=== PATIENT | female | born 1950 | race Caucasian/White ===

== ENCOUNTER → 2021-05-13 | Outpatient (CLI) | payer MEDICARE ==
--- NOTE | 2021-05-13 14:54 | NM ---
EXAMINATION TYPE: NM renal flow and function DATE OF EXAM: 05/13/2021 COMPARISON: NONE HISTORY: Hydronephrosis Following administration of 10.6 mCi Tc99m MAG3. Immediate images post injection. FINDINGS: Time activity curves were generated following administration and scanning posteriorly of th e kidneys. Lasix is administered on protocol. Left: 53.3 %. Right: 46.7 %. Max renal flow left: 7 minutes. Max renal flow right: 46.7 minutes. Satisfactory accumulation of radiotracer within both renal collecting systems. T 1/2 left: 11.7 minutes. T 1/2 right: 13.9 minutes. FINDINGS: There is some mild asymmetry noted on count acquisition between the kidneys as described. Excretion i s noted bilaterally, somewhat delayed excretion on the right as compared to left. Renal pelvis may be somewhat more prominent on the right than on the left. IMPRESSION: Mild asymmetric excretion, somewhat delayed on the right as compared to the left. 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
== END | disposition home or self-care (01) ==
LOC: RADNMMAIN 12:38
PROVIDERS: ATTEND Urology
DX: R93.421 Abnormal radiologic findings on diagnostic imaging of right kidney (principal); R93.422 Abnormal radiologic findings on diagnostic imaging of left kidney
CPT/HCPCS: 78707; A9562

== ENCOUNTER 2023-10-28 14:25 | Inpatient (IN) | payer MEDICARE ==
[2023-10-28] MEDS: HEPARIN SOD,PORK IN 0.45% NACL 25,000 UNIT in 0.45% NACL 1 250ML.BAG IV SCH (14:51)
--- NOTE | 2023-10-28 14:59 | ED ---
General Adult HPI - General Chief complaint: Fall Stated complaint: AFib Time Seen by Provider: 10/28/23 14:27 Source: patient, EMS Mode of arrival: EMS Limitations: no limitations - History of Present Illness Initial comments: Dictation was produced using [employer] dictation software. please excuse any grammatical, word or spelling errors. Chief Complaint: 73-year-old female presents to the ER for A-fib RVR History of Present Illness: Patient 73-year-old female transferred from outside emergency department. Spoke with Dr. Babin states that patient is being transferred for higher level of care. She presented initially for chief symptom of generalized weakness and presyncope. She was found to be in A-fib with rapid ventricular rate. She started on heparin and Cardizem. Patient does not have any history of cardiac disease. She states that she was recently diagnosed with Crohn's disease started on prednisone. Denies any chest pain or shortness of breath. The ROS documented in this emergency department record has been reviewed and confirmed by me. Those systems with pertinent positive or negative responses have been documented in the HPI. All other systems are other negative and/or noncontributory. - Related Data Allergies Allergy/AdvReac Type Severity Reaction Status Date / Time No Known Allergies Allergy Verified 10/28/23 14:38 Review of Systems ROS Statement: Those systems with pertinent positive or pertinent negative responses have been documented in the HPI. ROS Other: All systems not noted in ROS Statement are negative. Past Medical History Past Medical History: Asthma, Hyperlipidemia, Hypertension Additional Past Medical History / Comment(s): Colitis, Hypothyroidism, Telangiectasia History of Any Multi-Drug Resistant Organisms: None Reported Past Surgical History: Bladder Surgery Past Psychological History: No Psychological Hx Reported Smoking Status: Never smoker Past Alcohol Use History: Occasional Past Drug Use History: None Reported General Exam - General Exam Comments Initial Comments: PHYSICAL EXAM: General Impression: Alert and oriented x3, not in acute distress HEENT: Normocephalic atraumatic, extra-ocular movements intact, pupils equal and reactive to light bilaterally, mucous membranes moist. Cardiovascular: Irregular Chest: Able to complete full sentences, no retractions, no tachypnea Abdomen: abdomen soft, non-tender, non-distended, no organomegaly Musculoskeletal: Pulses present and equal in all extremities, no peripheral edema Motor: no focal deficits noted Neurological: CN II-XII grossly intact, no focal motor or sensory deficits noted Skin: Intact with no visualized rashes Psych: Normal affect and mood Limitations: no limitations Course Vital Signs 10/28/23 14:32 Temperature 98.8 F Pulse Rate 133 H Respiratory 18 Rate Blood Pressure 99/69 O2 Sat by Pulse 93 L Oximetry EKG Findings - EKG Comments: EKG Findings:: My EKG interpretation: Ventricular rate 120, A-fib, QRS 80, QTc 344. No QTC prolongation, no ST or T-wave changes noted. Overall, this EKG is unremarkable Medical Decision Making - Medical Decision Making Was pt. sent in by a medical professional or institution (, DAVID, [employer] P[employer] INST[employer]ER, urgent care, hospital, or senior living...) When possible be specific @ -Sent from outside emergency department Did you speak to anyone other than the patient for history (EMS, parent, family, police, friend...)? What history was obtained from this source @ -See above Did you review nursing and triage notes (agree or disagree)? Why? @ -I reviewed and agree with nursing and triage notes Were old charts reviewed (outside hosp., previous admission, EMS record, old EKG, old radiological studies, urgent care reports/EKG's, senior living records)? Report findings @ -Documentation from outside hospital reviewed Differential Diagnosis (chest pain, altered mental status, abdominal pain women, abdominal pain men, vaginal bleeding, musculoskeletal, weakness, fever, dyspnea, syncope, headache, dizziness, GI bleed, back pain, seizure, CVA, palpatations, mental health)? @ -Differential Weakness: Hypoglycemia, shock, sepsis, hyponatremia, anemia, infection, RI, ETOH, adverse medicine reaction, overdose, stroke, this is not meant to be an all-inclusive list. EKG interpreted by me (3pts min.). @ -See above X-rays interpreted by me (1pt min.). @ -None done CT interpreted by me (1pt min.). @ -None done U/S interpreted by me (1pt. min.). @ -None done What testing was considered but not performed or refused? (CT, X-rays, U/S, labs)? Why? @ -None What meds were considered but not given or refused? Why? @ -None Did you discuss the management of the patient with other professionals (professionals i.e. , DAVID, [employer]ED[employer] PIPE INSTALLER, lab, RT, psych nurse, social service worker, director of rotc, teacher, engineering officer, rn case manager)? Give summary @ -Discussed with hospitalist for admission Was smoking cessation discussed for >3mins.? @ -No Was critical care preformed (if so, how long)? @ -No Were there social determinants of health that impacted care today? How? (Homelessness, low income, unemployed, alcoholism, drug addiction, transportation, low edu. Level, literacy, decrease access to med. care, half-way, rehab)? @ -No Was there de-escalation of care discussed even if they declined (Discuss DNR or withdrawal of care, Hospice)? DNR status @ -No What co-morbidities impacted this encounter? (DM, HTN, Smoking, COPD, CAD, Cancer, CVA, ARF, Chemo, Hep., AIDS, mental health diagnosis, sleep apnea, morbid obesity)? @ -None Was patient admitted / discharged? Hospital course, mention meds given and route, prescriptions, significant lab abnormalities, going to OR and other pertinent info. @ -73-year-old female transferred from outside emergency department for higher level of care. Vital signs shows tachycardia. She is in some degree of mild A- fib RVR. Patient r continued on heparin and Cardizem. Patient be admitted with cardiology consultation. Undiagnosed new problem with uncertain prognosis? @ -No Drug Therapy requiring intensive monitoring for toxicity (Heparin, Nitro, Insulin, Cardizem)? @ -No Were any procedures done? @ -No Diagnosis/symptom? Acute, or Chronic, or Acute on Chronic? Uncomplicated (without systemic symptoms) or Complicated (systemic symptoms)? @ -New onset A-fib RVR Side effects of treatment? @ -No Exacerbation, Progression, or Severe Exacerbation? @ -No Poses a threat to life or bodily function? How? (Chest pain, USA, RI, pneumonia, PE, COPD, DKA, ARF, appy, cholecystitis, CVA, Diverticulitis, Homicidal, Suicid al, threat to staff... and all critical care pts) @ -yes Disposition Clinical Impression: Atrial fibrillation with RVR Disposition: ADMITTED IP TO THIS HOSP Condition: Fair Referrals: Lillian Olvera DO [Primary Care Provider] - 1-2 days Decision Time: 15:07
[2023-10-28] MEDS ORDERED: NALOXONE 0.4 MG/ML 1 ML VIAL IV PRN (15:01)
[2023-10-28] MEDS: SODIUM CHLORIDE 0.9% 1,000 ML IV SCH (15:21)
[2023-10-28] MEDS: DILTIAZEM 125 MG in SODIUM CHLORIDE 0.9% 100 ML IV SCH (15:21)
[2023-10-28] MEDS: SODIUM CHLORIDE 0.9% 500 ML 250 ML IV ONE (17:48)
[2023-10-28] MEDS ORDERED: ALBUTEROL NEBULIZED 1.25 MG/3 ML INHALATION PRN (18:54)
[2023-10-28] MEDS ORDERED: ALBUTEROL HFA INHALER INHALATION PRN (18:54)
[2023-10-28 20:09] LABS: HCT 29.5 % (34.0-46.0); HGB 9.8 gm/dL (11.4-16.0); Hypochromasia Slight; MCH 29.7 pg (25.0-35.0); MCHC 33.3 g/dL (31.0-37.0); MCV 89.3 fL (80.0-100.0); Mean Platelet Volume 8.6; Platelet Count 394 k/uL (150-450); RDW 15.2 % (11.5-15.5); WBC 12.7 k/uL (3.8-10.6)
[2023-10-28] MEDS: BALSALAZIDE DISODIUM 750 MG CAPSULE PO SCH (20:53)
[2023-10-28 21:26] LABS: African American GFR (CKD) >90 (>60 ml/min/1.73 sqM); Anion Gap 3 mmol/L; Blood Urea Nitrogen 17 mg/dL (7-17); Calcium 7.7 mg/dL (8.4-10.2); Carbon Dioxide 30 mmol/L (22-30); Chloride 95 mmol/L (98-107); Glucose 119 mg/dL (74-99); Non-African American GFR(CKD) 81 (>60 ml/min/1.73 sqM); Potassium 4.1 mmol/L (3.5-5.1); Sodium 128 mmol/L (137-145)
[2023-10-28] MEDS: HEPARIN SODIUM 1,000 UN/ML (10ML VL) IV PRN (22:29)
[2023-10-29] MEDS: FLUTICASONE 110 MCG INHALER INHALATION SCH (00:42)
[2023-10-29 03:19] LABS: HGB 9.6 gm/dL (11.4-16.0); MCH 28.6 pg (25.0-35.0); MCHC 32.1 g/dL (31.0-37.0); MCV 89.1 fL (80.0-100.0); Mean Platelet Volume 7.3; Platelet Count 475 k/uL (150-450); RBC 3.37 m/uL (3.80-5.40); WBC 11.3 k/uL (3.8-10.6)
[2023-10-29 04:12] LABS: African American GFR (CKD) >90 (>60 ml/min/1.73 sqM); Blood Urea Nitrogen 15 mg/dL (7-17); Calcium 7.6 mg/dL (8.4-10.2); Carbon Dioxide 29 mmol/L (22-30); Chloride 96 mmol/L (98-107); Glucose 105 mg/dL (74-99); Non-African American GFR(CKD) 84 (>60 ml/min/1.73 sqM)
[2023-10-29 04:23] LABS: Anion Gap 2 mmol/L; Potassium 3.5 mmol/L (3.5-5.1); Sodium 127 mmol/L (137-145)
[2023-10-29] MEDS: LEVOTHYROXINE 25 MCG TAB PO SCH (09:46)
[2023-10-29] MEDS: ASCORBIC ACID 500 MG TAB PO SCH (09:46)
[2023-10-29] MEDS: MULTIVITAMINS, THERA 1 EACH TAB PO SCH (09:46)
[2023-10-29] MEDS: DEXTROSE 5% IN WATER 100 ML with AMIODARONE 150 MG IV ONE (09:47)
[2023-10-29] MEDS: predniSONE 10 MG TAB PO SCH (09:47)
[2023-10-29] MEDS: AMIODARONE 360 MG in DEXTROSE 5% IN WATER 200 ML IV ONE (09:48)
[2023-10-29] MEDS: CHOLECALCIFEROL 25 MCG (1000 IU) TABLET PO SCH (09:52)
--- NOTE | 2023-10-29 10:10 | P.CRDCN ---
History of Present Illness History of present illness: HISTORY OF PRESENT ILLNESS: This is a 73 year old female with a past medical history significant for hypertension, hypothyroidism, and Crohn's disease. Patient follows with a local area network administrator. We have been asked to see the patient in consultation for new onset atrial fibrillation. Patient examined at the bedside. Patient initially presented to the hospital after sustaining a fall. She states that she was diagnosed recently with left foot cellulitis. The patient was also found to be in A-fib with RVR. She denies a previous history of atrial fibrillation. She denied having any palpitations. She denies any chest pain or pressure. She denies shortness of breath. The patient was started on IV heparin. She did develop bright red blood per rectum this morning and her IV heparin has been discontinued. She does report that she was recently diagnosed with Crohn's disease and was started on steroids on an outpatient basis. This morning she remains in atrial fibrillation with heart rate between [id number]. DIAGNOSTICS: - EKG reveals atrial fibrillation with RVR. Heart rate 120. No signs of acute ischemia - Laboratory data: WBC 11.3. Hemoglobin 9.6. Platelet count 475. Sodium 128. Potassium 3.5. BUN 15. Creatinine 0.71. Magnesium 2.0. Troponin negative x 1. TSH 1.180 - Current home cardiac medications include Lasix 20 mg daily and benazepril 40 mg daily REVIEW OF SYSTEMS: At the time of my exam: CONSTITUTIONAL: Denies fever or chills. HEENT: Denies blurred vision, vision changes, or eye pain. Denies hemoptysis CARDIOVASCULAR: Denies chest pain. Denies orthopnea. Denies PND. Denies palpitations RESPIRATORY: Denies shortness of breath. GASTROINTESTINAL: Denies abdominal pain. Denies nausea or vomiting. HEMATOLOGIC: Denies bleeding disorders. GENITOURINARY: Denies any blood in urine. SKIN: Denies pruitis. Denies rash. PHYSICAL EXAM: VITAL SIGNS: Reviewed. GENERAL: Well-developed in no acute distress. HEENT: Head is normocephalic. Pupils are equal, round. Sclerae anicteric. Mucous membranes of the mouth are moist. Neck supple. No JVD or thyromegaly LUNGS: Respirations even and unlabored. Lungs essentially clear to auscultation bilaterally. HEART: Tachycardic. Irregular rate and rhythm. S1 and S2 heard. ABDOMEN: Soft. Nondistended. Nontender. EXTREMITIES: Normal range of motion. No clubbing or cyanosis. Peripheral pulses intact. 2+ bilateral lower extremity edema, worse at the feet/ankles NEUROLOGIC: Awake and alert. Oriented x 3. ASSESSMENT: Recent diagnosis of left foot cellulitis, appears to be resolved S/P mechanical fall New onset atrial fibrillation with RVR Bright red blood per rectum, after initiation of IV Heparin Recent diagnosis of Crohn's disease Hyponatremia Hypertension Hypothyroidism Family history of CAD PLAN: Obtain 2D echo to assess cardiac structure and function Discontinue IV heparin. Will not initiate oral anticoagulation at this time secondary to bright red blood per rectum. Continue to monitor hemoglobin. Discontinue IV Cardizem Begin metoprolol 25 mg twice a day Begin IV amiodarone bolus and infusion TSH checked and within normal limits. Continue telemetry monitoring Hold off on initiating diuretic therapy for lower extremity edema secondary to hyponatremia Further recommendations pending patient course Nurse practitioner note has been reviewed by physician. Signing provider agrees with the documented findings, assessment, and plan of care documented by [employer] E[employer]OMIST as a scribe. Past Medical History Past Medical History: Asthma, Hyperlipidemia, Hypertension Additional Past Medical History / Comment(s): Colitis, Hypothyroidism History of Any Multi-Drug Resistant Organisms: None Reported Past Surgical History: Bladder Surgery Additional Past Surgical History / Comment(s): Colonoscopy Past Anesthesia/Blood Transfusion Reactions: No Reported Reaction Smoking Status: Former smoker Medications and Allergies Home Medications Medication Instructions Recorded Confirmed Type Albuterol Sulfate [Accuneb] 3 ml INHALATION RT-Q4H PRN 10/28/23 10/28/23 History Albuterol Sulfate [Ventolin HFA] 2 puff INHALATION RT-Q4H PRN 10/28/23 10/28/23 History Ascorbic Acid [Vitamin C] 1,000 mg PO DAILY 10/28/23 10/28/23 History Balsalazide Disodium 2,250 mg PO TID 10/28/23 10/28/23 History Benazepril HCl 40 mg PO DAILY 10/28/23 10/28/23 History Calcium Citrate/Vitamin D3 1 tab PO DAILY 10/28/23 10/28/23 History [Citracal + D Maximum Caplet] Cholecalciferol [Vitamin D3 (25 25 mcg PO DAILY 10/28/23 10/28/23 History Mcg = 1000 Iu)] EPINEPHrine (Auto Inject) [Epipen] 0.3 mg IM ONCE PRN 10/28/23 10/28/23 History Fluticasone Propionate 110 Mcg 1 puff INHALATION RT-BID 10/28/23 10/28/23 History [Flovent 110 Mcg Inhaler] Furosemide [Lasix] 20 mg PO DAILY 10/28/23 10/28/23 History Garlic 1,000 mg PO DAILY 10/28/23 10/28/23 History Levothyroxine Sodium 25 mcg PO DAILY 10/28/23 10/28/23 History Multivitamins, Thera [Multivitamin 1 tab PO DAILY 10/28/23 10/28/23 History (formulary)] Red Yeast Rice 1,200 mg PO DAILY 10/28/23 10/28/23 History Ubidecarenone [Coenzyme Q10] 100 mg PO DAILY 10/28/23 10/28/23 History Zinc Gluconate [Zinc] 50 mg PO DAILY 10/28/23 10/28/23 History predniSONE 40 mg PO DAILY 10/28/23 10/28/23 History Allergies Allergy/AdvReac Type Severity Reaction Status Date / Time No Known Allergies Allergy Verified 10/28/23 16:03 Physical Exam Vitals: Vital Signs Temp Pulse Pulse Resp BP BP BP 10/29/23 04:00 99.5 F 121 H 17 99/64 10/29/23 02:00 117 H 17 10/29/23 00:00 98.8 F 113 H 17 130/84 10/28/23 20:00 99.2 F 119 H 17 94/66 10/28/23 18:00 103/69 10/28/23 17:50 93/63 10/28/23 17:40 95/66 10/28/23 17:30 88/60 10/28/23 17:20 81/57 10/28/23 17:15 88/56 10/28/23 16:00 98.4 F 118 H 18 106/43 10/28/23 14:32 98.8 F 133 H 18 99/69 Pulse Ox 10/29/23 04:00 92 L 10/29/23 02:00 10/29/23 00:00 94 L 10/28/23 20:00 93 L 10/28/23 18:00 10/28/23 17:50 10/28/23 17:40 10/28/23 17:30 10/28/23 17:20 10/28/23 17:15 10/28/23 16:00 96 10/28/23 14:32 93 L Intake and Output 10/28/23 10/29/23 10/29/23 22:59 06:59 14:59 Intake Total 252.404 93.333 Output Total 200 Balance 252.404 -106.667 Intake: Intake, IV Titration 72.404 93.333 Amount Diltiazem 125 mg In 93.333 Sodium Chloride 0.9% 100 ml @ 10 MG/HR 10 mls/hr IV .[id number] [facility] Rx#: [id number] Heparin Sod,Pork in 0.45% 72.404 NaCl 25,000 unit In 0.45 % NaCl 1 250ml.bag @ 12 UNITS/KG/HR 9.444 mls/hr IV .Q24H [facility] Rx#: [id number] Oral 180 Output: Urine 200 Other: Voiding Method Bedside Commode Bedside Commode # Voids 1 Weight 78.744 kg Results 10/29/23 03:09 10/29/23 03:09 Cardiac Enzymes 10/28/23 Range/Units 21:35 Troponin I <0.012 (0.000-0.034) ng/mL Coagulation 10/28/23 10/28/23 10/29/23 Range/Units 15:30 21:35 03:09 APTT 37.1 H 25.8 68.3 H (22.0-30.0) sec CBC 10/28/23 10/29/23 Range/Units 19:26 03:09 WBC 12.7 H 11.3 H (3.8-10.6) k/uL RBC 3.30 L 3.37 L (3.80-5.40) m/uL Hgb 9.8 L 9.6 L (11.4-16.0) gm/dL Hct 29.5 L 30.0 L (34.0-46.0) % Plt Count 394 475 H (150-450) k/uL Comprehensive Metabolic Panel 10/28/23 10/29/23 Range/Units 19:26 03:09 Sodium 128 L 127 L (137-145) mmol/L Potassium 4.1 3.5 (3.5-5.1) mmol/L Chloride 95 L 96 L (98-107) mmol/L Carbon Dioxide 30 29 (22-30) mmol/L BUN 17 15 (7-17) mg/dL Creatinine 0.73 0.71 (0.52-1.04) mg/dL Glucose 119 H 105 H (74-99) mg/dL Calcium 7.7 L 7.6 L (8.4-10.2) mg/dL Current Medications Generic Name Dose Route Start Last Admin Trade Name Freq PRN Reason Stop Dose Admin Albuterol Sulfate 0.625 mg 10/28/23 18:54 Albuterol Nebulized 1.25 Mg/3 Ml INHALATION RT-Q4H PRN Shortness Of Breath Albuterol Sulfate 2 puff 10/28/23 18:54 Albuterol Hfa Inhaler INHALATION RT-Q4H PRN Shortness Of Breath Ascorbic Acid 1,000 mg 10/29/23 09:00 Ascorbic Acid 500 Mg Tab PO DAILY [facility] Balsalazide 2,250 mg 10/28/23 22:00 10/28/23 20:53 Balsalazide Disodium 750 Mg Capsule PO 2,250 mg TID [facility] Administration Cholecalciferol 25 mcg 10/29/23 09:00 Cholecalciferol 25 Mcg (1000 Iu) Tablet PO DAILY [facility] Fluticasone Propionate 1 puff 10/28/23 20:00 10/29/23 00:42 Fluticasone 110 Mcg Inhaler INHALATION 1 puff RT-BID [facility] Administration Heparin Sodium (Porcine) 0 unit 10/28/23 14:41 10/28/23 22:29 Heparin Sodium 1,000 Un/Ml (10ml Vl) IV 3,900 unit PER PROTOCOL PRN Administration Low PTT Protocol Diltiazem HCl 125 mg/ Sodium 125 mls @ 10 mls/hr 10/28/23 14:45 10/29/23 00:41 Chloride IV 10 mg/hr .[id number] [facility] 10 mls/hr Administration 10 MG/HR Heparin Sodium/Sodium Chloride 250 mls @ 9.444 mls/hr 10/28/23 14:45 10/28/23 22:31 25,000 unit/ Sodium Chloride IV 15 units/kg/hr .Q24H [facility] 11.805 mls/hr Titration Protocol 12 UNITS/KG/HR Sodium Chloride 1,000 mls @ 20 mls/hr 10/28/23 15:15 03/17/24 15:21 Saline 0.9% IV 20 mls/hr .Q24H [facility] Administration Levothyroxine Sodium 25 mcg 10/29/23 09:00 Levothyroxine 25 Mcg Tab PO DAILY [facility] Multivitamins 1 each 10/29/23 09:00 Multivitamins, Thera 1 Each Tab PO DAILY [facility] Naloxone HCl 0.2 mg 10/28/23 15:01 Naloxone 0.4 Mg/Ml 1 Ml Vial IV Q2M PRN Opioid Reversal Non-Formulary Medication 1 tab 10/29/23 09:00 Calcium Citrate/Vitamin D3 [Citracal + D Maximum Caplet] PO DAILY [facility] Non-Formulary Medication 1,000 mg 10/29/23 09:00 Garlic [Garlic] PO DAILY [facility] Non-Formulary Medication 50 mg 10/29/23 09:00 Zinc Gluconate PO DAILY [facility] Prednisone 40 mg 10/29/23 09:00 Prednisone 10 Mg Tab PO DAILY [facility] Intake and Output 10/28/23 10/29/23 10/29/23 22:59 06:59 14:59 Intake Total 252.404 93.333 Output Total 200 Balance 252.404 -106.667 Intake: Intake, IV Titration 72.404 93.333 Amount Diltiazem 125 mg In 93.333 Sodium Chloride 0.9% 100 ml @ 10 MG/HR 10 mls/hr IV .[id number] [facility] Rx#: [id number] Heparin Sod,Pork in 0.45% 72.404 NaCl 25,000 unit In 0.45 % NaCl 1 250ml.bag @ 12 UNITS/KG/HR 9.444 mls/hr IV .Q24H [facility] Rx#: [id number] Oral 180 Output: Urine 200 Other: Voiding Method Bedside Commode Bedside Commode # Voids 1 Weight 78.744 kg 10/29/23 03:09 10/29/23 03:09
[2023-10-29] MEDS: NON FORMULARY DRUG (Garlic [Garlic] 1,000 MG Capsule) PO SCH (10:25)
[2023-10-29] MEDS: NON FORMULARY DRUG (Calcium Citrate/Vitamin D3 [Citracal + D Maximum Caplet] 1 EACH Tablet PO SCH (10:25)
[2023-10-29] MEDS: NON FORMULARY DRUG (Zinc Gluconate 50 MG Tab) PO SCH (10:26)
--- NOTE | 2023-10-29 10:29 | CA ---
Transthoracic Echo Report Name: Debra Alejandre Age: 73 Gender: F : 1950 Exam Date: 10/29/2023 07:36 Exam Location: [facility] Ht (in): 63 Wt (lb): 173 Ordering Physician: Kumar Casas MD ([id number]) Attending/Referring Phys: Fish Trapper Dorene Prado RDCS Procedure CPT: Indications: afib rvr Cardiac Hx: HTN Technical Quality: Good Contrast 1: Total Dose (mL): Contrast 2: Total Dose (mL): MEASUREMENTS (Male / Female) Normal Values 2D ECHO LV Diastolic Diameter PLAX 3.9 cm 4.2 - 5.9 / 3.9 - 5.3 cm LV Systolic Diameter PLAX 2.3 cm IVS Diastolic Thickness 1.1 cm 0.6 - 1.0 / 0.6 - 0.9 cm LVPW Diastolic Thickness 1.0 cm 0.6 - 1.0 / 0.6 - 0.9 cm LV Relative Wall Thickness 0.5 RV Internal Dim ED PLAX 2.9 cm LA Systolic Diameter LX 3.1 cm 3.0 - 4.0 / 2.7 - 3.8 cm LV Diastolic Volume MOD BP 43.2 cm??? 67 - 155 / 56 - 104 cm??? LV Systolic Volume MOD BP 12.5 cm??? - 58 / 19 - 49 cm??? LV Ejection Fraction MOD BP 71.0 % >= 55 % LV Cardiac Index MOD BP 1893.0 cm???/min???m??? LV Diastolic Volume MOD 4C 60.9 cm??? LV Systolic Volume MOD 4C 13.3 cm??? LV Ejection Fraction MOD 4C 78.1 % LV Cardiac Index MOD 4C 2938.2 cm???/min???m??? LV Diastolic Length 4C 6.9 cm LV Systolic Length 4C 4.8 cm LV Diastolic Volume MOD 2C 28.2 cm??? LV Systolic Volume MOD 2C 11.0 cm??? LV Ejection Fraction MOD 2C 60.8 % LV Cardiac Index MOD 2C 1056.1 cm???/min???m??? LV Diastolic Length 2C 5.8 cm LV Systolic Length 2C 4.4 cm LA Volume 27.8 cm??? 18 - 58 / 22 - 52 cm??? LA Volume Index 14.7 cm???/m??? 16 - 28 cm???/m??? M-MODE Aortic Root Diameter MM 3.3 cm DOPPLER AV Peak Velocity 113.7 cm/s AV Peak Gradient 5.2 mmHg MV Area PHT 2.9 cm??? MV Deceleration Time 224.3 ms TR Peak Velocity 212.1 cm/s TR Peak Gradient 18.0 mmHg Right Ventricular Systolic Press 23.0 mmHg FINDINGS Left Ventricle Left ventricular ejection fraction is estimated at 60-65 %. Left ventricular cavity size normal. Mildly increased septal wall thickness. Mildly increased posterior wall thickness. Right Ventricle Normal right ventricular size. Right ventricular systolic pressure within normal limits. Right Atrium Normal right atrial size. Left Atrium Normal left atrial size. Mitral Valve Structurally normal mitral valve. No mitral stenosis, regurgitation or prolapse. Aortic Valve Trileaflet aortic valve. No aortic valve stenosis or regurgitation. Tricuspid Valve Structurally normal tricuspid valve. Mild tricuspid regurgitation. Pulmonic Valve Structurally normal pulmonic valve. No pulmonic regurgitation. Pericardium No pericardial effusion. Aorta Normal size aortic root and proximal ascending aorta. CONCLUSIONS Left ventricular ejection fraction is estimated at 60-65 %. Mild concentric LVH No obvious regional wall motion abnormality No significant valvular dysfunction No pericardial effusion No prior echo to compare with indicated Previewed by: Dr Toby Woods (Electronically Signed) Final Date: 29 October 2023 10:28
[2023-10-29] MEDS: SODIUM CHLORIDE 0.9% 250 ML IV SCH (12:00)
[2023-10-29] MEDS ORDERED: ACETAMINOPHEN TAB 325 MG TAB PO PRN (12:12)
--- NOTE | 2023-10-29 12:16 | P.HPIM ---
History of Present Illness 73-year-old pleasant female came in after a fall. Patient is found to be in atrial fibrillation with ventricular rate. Patient is presently on amiodarone patient was on Cardizem patient blood pressure is low. Patient had a echocar diogram which showed ejection fraction of 60 to 65%. Patient does take Lasix at home. Patient is also on benazepril. I do not have any BNP available chest x- ray available in this facility. Patient was recently diagnosed with Crohn's disease although not common at this stage. Patient was on IV heparin which was discontinued because of the rectal rectal bleed and Crohn's. Patient was diagnosed with cellulitis although I did not see any cellulitis patient appears to have some osteoarthritis of the left ankle. Patient will not require any antibiotics at this time. REVIEW OF SYSTEMS: CONSTITUTIONAL: No fever, no malaise, no fatigue. HEENT: No recent visual problems or hearing problems. Denied any sore throat. CARDIOVASCULAR: No chest pain, orthopnea, PND, no palpitations, no syncope. PULMONARY: No shortness of breath, no cough, no hemoptysis. GASTROINTESTINAL: No diarrhea, no nausea, no vomiting, no abdominal pain. NEUROLOGICAL: No headaches, no weakness, no numbness. HEMATOLOGICAL: Denies any bleeding or petechiae. GENITOURINARY: Denies any burning micturition, frequency, or urgency. MUSCULOSKELETAL/RHEUMATOLOGICAL: Denies any joint pain, swelling, or any muscle pain. ENDOCRINE: Denies any polyuria or polydipsia. The rest of the 14-point review of systems is negative. PHYSICAL EXAMINATION: GENERAL: The patient is alert and oriented x3, not in any acute distress. Well developed, well nourished. HEENT: Pupils are round and equally reacting to light. EOMI. No scleral icterus. No conjunctival pallor. Normocephalic, atraumatic. No pharyngeal erythema. No thyromegaly. CARDIOVASCULAR: S1 and S2 present. No murmurs, rubs, or gallops. Tachycardic irregularly irregular rhythm PULMONARY: Chest is clear to auscultation, no wheezing or crackles. ABDOMEN: Soft, nontender, nondistended, normoactive bowel sounds. No palpable organomegaly. MUSCULOSKELETAL: No joint swelling or deformity. EXTREMITIES: No cyanosis, clubbing, patient does have significant bilateral pitting pedal edema NEUROLOGICAL: Gross neurological examination did not reveal any focal deficits. SKIN: No rashes. Assessment and plan -New onset atrial fibrillation with rapid ventricular rate continue with amiodarone, anticoagulation is on hold because of the rectal bleed -Possibly of congestive heart failure chronic diastolic function. BNP and a chest x-ray patient blood pressure is low because of which I am not initiating her on diuretics at this time patient probably will need dose once the blood pressure improves -Hypervolemic hyponatremia once the blood pressure improves patient was started on Lasix -Recent's Crohn's diagnosis without any exacerbation at this time patient did have rectal bleed because of which anticoagulation is on hold -Hypertension -Hypothyroidism -Mechanical fall physical therapy occupational therapy evaluation History of asthma without any acute exacerbation DVT prophylaxis: Patient is anticoagulation is on hold because of rectal bleed Past Medical History Past Medical History: Asthma, Hyperlipidemia, Hypertension Additional Past Medical History / Comment(s): Colitis, Hypothyroidism History of Any Multi-Drug Resistant Organisms: None Reported Past Surgical History: Bladder Surgery Additional Past Surgical History / Comment(s): Colonoscopy Past Anesthesia/Blood Transfusion Reactions: No Reported Reaction Smoking Status: Former smoker Medications and Allergies Home Medications Medication Instructions Recorded Confirmed Type Albuterol Sulfate [Accuneb] 3 ml INHALATION RT-Q4H PRN 10/28/23 10/28/23 History Albuterol Sulfate [Ventolin HFA] 2 puff INHALATION RT-Q4H PRN 10/28/23 10/28/23 History Ascorbic Acid [Vitamin C] 1,000 mg PO DAILY 10/28/23 10/28/23 History Balsalazide Disodium 2,250 mg PO TID 10/28/23 10/28/23 History Benazepril HCl 40 mg PO DAILY 10/28/23 10/28/23 History Calcium Citrate/Vitamin D3 1 tab PO DAILY 10/28/23 10/28/23 History [Citracal + D Maximum Caplet] Cholecalciferol [Vitamin D3 (25 25 mcg PO DAILY 10/28/23 10/28/23 History Mcg = 1000 Iu)] EPINEPHrine (Auto Inject) [Epipen] 0.3 mg IM ONCE PRN 10/28/23 10/28/23 History Fluticasone Propionate 110 Mcg 1 puff INHALATION RT-BID 10/28/23 10/28/23 History [Flovent 110 Mcg Inhaler] Furosemide [Lasix] 20 mg PO DAILY 10/28/23 10/28/23 History Garlic 1,000 mg PO DAILY 10/28/23 10/28/23 History Levothyroxine Sodium 25 mcg PO DAILY 10/28/23 10/28/23 History Multivitamins, Thera [Multivitamin 1 tab PO DAILY 10/28/23 10/28/23 History (formulary)] Red Yeast Rice 1,200 mg PO DAILY 10/28/23 10/28/23 History Ubidecarenone [Coenzyme Q10] 100 mg PO DAILY 10/28/23 10/28/23 History Zinc Gluconate [Zinc] 50 mg PO DAILY 10/28/23 10/28/23 History predniSONE 40 mg PO DAILY 10/28/23 10/28/23 History Allergies Allergy/AdvReac Type Severity Reaction Status Date / Time No Known Allergies Allergy Verified 10/28/23 16:03 Physical Exam Vitals: Vital Signs Temp Pulse Pulse Resp BP BP BP 10/29/23 10:00 90/61 10/29/23 08:00 98.2 F 114 H 18 84/59 10/29/23 04:00 99.5 F 121 H 17 99/64 10/29/23 02:00 117 H 17 10/29/23 00:00 98.8 F 113 H 17 130/84 10/28/23 20:00 99.2 F 119 H 17 94/66 10/28/23 18:00 103/69 10/28/23 17:50 93/63 10/28/23 17:40 95/66 10/28/23 17:30 88/60 10/28/23 17:20 81/57 10/28/23 17:15 88/56 10/28/23 16:00 98.4 F 118 H 18 106/43 10/28/23 14:32 98.8 F 133 H 18 99/69 Pulse Ox 10/29/23 10:00 10/29/23 08:00 95 10/29/23 04:00 92 L 10/29/23 02:00 10/29/23 00:00 94 L 10/28/23 20:00 93 L 10/28/23 18:00 10/28/23 17:50 10/28/23 17:40 10/28/23 17:30 10/28/23 17:20 10/28/23 17:15 10/28/23 16:00 96 10/28/23 14:32 93 L Intake and Output 10/28/23 10/29/23 10/29/23 22:59 06:59 14:59 Intake Total 252.404 93.333 180 Output Total 200 Balance 252.404 -106.667 180 Intake: Intake, IV Titration 72.404 93.333 Amount Diltiazem 125 mg In 93.333 Sodium Chloride 0.9% 100 ml @ 10 MG/HR 10 mls/hr IV .[id number] [facility] Rx#: [id number] Heparin Sod,Pork in 0.45% 72.404 NaCl 25,000 unit In 0.45 % NaCl 1 250ml.bag @ 12 UNITS/KG/HR 9.444 mls/hr IV .Q24H [facility] Rx#: [id number] Oral 180 180 Output: Urine 200 Other: Voiding Method Bedside Commode Bedside Commode # Voids 1 1 Weight 78.744 kg Results CBC & Chem 7: 10/29/23 03:09 10/29/23 03:09 Labs: Abnormal Lab Results - Last 24 Hours (Table) 10/28/23 10/28/23 10/28/23 Range/Units 15:30 19:26 19:26 WBC 12.7 H (3.8-10.6) k/uL RBC 3.30 L (3.80-5.40) m/uL Hgb 9.8 L (11.4-16.0) gm/dL Hct 29.5 L (34.0-46.0) % Plt Count (150-450) k/uL APTT 37.1 H (22.0-30.0) sec Sodium 128 L (137-145) mmol/L Chloride 95 L (98-107) mmol/L Glucose 119 H (74-99) mg/dL Calcium 7.7 L (8.4-10.2) mg/dL 10/29/23 10/29/23 10/29/23 Range/Units 03:09 03:09 03:09 WBC 11.3 H (3.8-10.6) k/uL RBC 3.37 L (3.80-5.40) m/uL Hgb 9.6 L (11.4-16.0) gm/dL Hct 30.0 L (34.0-46.0) % Plt Count 475 H (150-450) k/uL APTT 68.3 H (22.0-30.0) sec Sodium 127 L (137-145) mmol/L Chloride 96 L (98-107) mmol/L Glucose 105 H (74-99) mg/dL Calcium 7.6 L (8.4-10.2) mg/dL Thrombosis Risk Factor Assmnt - Choose All That Apply Any of the Below Risk Factors Present?: No Each Risk Factor Represents 3 Points: Age 75 years or older Other congenital or acquired thrombophilia - If yes, enter type in comment: No Thrombosis Risk Factor Assessment Total Risk Factor Score: 3 Thrombosis Risk Factor Assessment Level: Moderate Risk
--- NOTE | 2023-10-29 12:35 | XR ---
EXAMINATION TYPE: XR chest 1V DATE OF EXAM: 10/29/2023 12:30 PM CLINICAL INDICATION:Female, 73 years old with history of CHF; COMPARISON: CT 10/28/2023. TECHNIQUE: XR chest 1V Frontal view of the chest. FINDINGS: Lungs/Pleura: There is no evidence of pleural effusion, focal consolidation, or pneumothorax. Pulmonary vascularity: Unremarkable. Heart/mediastinum: Cardiomediastinal silhouette is unremarkable. Musculoskeletal: No acute osseous pathology. IMPRESSION: No acute cardiopulmonary disease/process.
[2023-10-29 13:28] VITALS: BMI 30.7
[2023-10-29] MEDS: AMIODARONE 450 MG in DEXTROSE 5% IN WATER 250 ML IV SCH (15:46)
[2023-10-29] MEDS: SODIUM CHLORIDE 0.9% 1,000 ML IV SCH (15:48)
[2023-10-29] MEDS: METOPROLOL TARTRATE 25 MG TAB PO SCH (15:49)
[2023-10-30] MEDS ORDERED: predniSONE 20 MG TAB ONE (08:00)
[2023-10-30 09:49] LABS: HCT 31.4 % (34.0-46.0); HGB 9.8 gm/dL (11.4-16.0); Hypochromasia Slight; MCH 28.6 pg (25.0-35.0); MCHC 31.2 g/dL (31.0-37.0); MCV 91.7 fL (80.0-100.0); Mean Platelet Volume 7.3; Platelet Count 506 k/uL (150-450); RBC 3.42 m/uL (3.80-5.40); RDW 15.2 % (11.5-15.5); WBC 12.1 k/uL (3.8-10.6)
[2023-10-30 10:12] LABS: African American GFR (CKD) >90 (>60 ml/min/1.73 sqM); Anion Gap 8 mmol/L; Blood Urea Nitrogen 12 mg/dL (7-17); Calcium 7.8 mg/dL (8.4-10.2); Carbon Dioxide 26 mmol/L (22-30); Chloride 95 mmol/L (98-107); Glucose 130 mg/dL (74-99); Non-African American GFR(CKD) 83 (>60 ml/min/1.73 sqM); Potassium 4.4 mmol/L (3.5-5.1); Sodium 129 mmol/L (137-145)
[2023-10-30] MEDS: AMIODARONE 200 MG TAB PO SCH (12:43)
[2023-10-30] MEDS: FUROSEMIDE 20 MG TAB PO SCH (12:43)
[2023-10-30] MEDS: METOPROLOL TARTRATE 25 MG TAB PO STA (12:43)
--- NOTE | 2023-10-30 12:59 | P.PN ---
Subjective HISTORY OF PRESENT ILLNESS: This is a 73 year old female with a past medical history significant for hypertension, hypothyroidism, and Crohn's disease. Patient follows with a speech and language assistant. We have been asked to see the patient in consultation for new onset atrial fibrillation. Patient examined at the bedside. Patient initially presented to the hospital after sustaining a fall. She states that she was diagnosed recently with left foot cellulitis. The patient was also found to be in A-fib with RVR. She denies a previous history of atrial fibrillation. She denied having any palpitations. She denies any chest pain or pressure. She denies shortness of breath. The patient was started on IV heparin. She did develop bright red blood per rectum this morning and her IV heparin has been discontinued. She does report that she was recently diagnosed with Crohn's disease and was started on steroids on an outpatient basis. This morning she remains in atrial fibrillation with heart rate between [id number]. DIAGNOSTICS: - EKG reveals atrial fibrillation with RVR. Heart rate 120. No signs of acute ischemia - Laboratory data: WBC 11.3. Hemoglobin 9.6. Platelet count 475. Sodium 128. Potassium 3.5. BUN 15. Creatinine 0.71. Magnesium 2.0. Troponin negative x 1. TSH 1.180 - Current home cardiac medications include Lasix 20 mg daily and benazepril 40 mg daily 10/30/2023 Patient examined this morning at the bedside. Patient is sitting up in the chair. Patient currently denies chest pain or pressure. She denies shortness o f breath. Patient remains in atrial fibrillation with heart rate around 110. IV heparin was discontinued yesterday secondary to rectal bleeding. Echocardiogram obtained revealing ejection fraction 60 to 65%, no obvious regional wall motion abnormalities and no significant valvular dysfunction. PHYSICAL EXAM: VITAL SIGNS: Reviewed. GENERAL: Well-developed in no acute distress. HEENT: Head is normocephalic. Pupils are equal, round. Sclerae anicteric. Mucous membranes of the mouth are moist. Neck supple. No JVD or thyromegaly LUNGS: Respirations even and unlabored. Lungs essentially clear to auscultation bilaterally. HEART: Tachycardic. Irregular rate and rhythm. S1 and S2 heard. ABDOMEN: Soft. Nondistended. Nontender. EXTREMITIES: Normal range of motion. No clubbing or cyanosis. Peripheral pulses intact. 2+ bilateral lower extremity edema, worse at the feet/ankles NEUROLOGIC: Awake and alert. Oriented x 3. ASSESSMENT: Recent diagnosis of left foot cellulitis, appears to be resolved S/P mechanical fall New onset atrial fibrillation with RVR Bright red blood per rectum, after initiation of IV Heparin Recent diagnosis of Crohn's disease Hyponatremia Hypertension Hypothyroidism Family history of CAD PLAN: Will not initiate oral anticoagulation at this time secondary to bright red blood per rectum yesterday. Continue to monitor hemoglobin. Increase metoprolol to 50 mg twice a day Discontinue IV amiodarone. Begin oral amiodarone 400 mg twice a day Resume oral Lasix Continue telemetry monitoring Further recommendations pending patient course Nurse practitioner note has been reviewed by physician. Signing provider agrees with the documented findings, assessment, and plan of care documented by TALENT MANAGER as a scribe. Objective - Vital Signs Vital signs: Vital Signs Temp 97.5 F L 10/30/23 08:00 Pulse 119 H 10/30/23 08:00 Resp 18 10/30/23 08:00 BP 104/70 10/30/23 08:00 Pulse Ox 96 10/30/23 08:00 FiO2 Intake & Output 10/29/23 10/30/23 10/30/23 18:59 06:59 18:59 Intake Total 540 227.505 Output Total 780 Balance 540 -552.495 Weight 78.744 kg 80.1 kg Intake: Intake, IV Titration 227.505 Amount Amiodarone 450 mg In 227.505 Dextrose 5% in Water 250 ml @ 0.5 MG/MIN 16.667 mls/hr IV .Q15H [facility] Rx#: [id number] Oral 540 Output: Urine 780 Other: Voiding Method Bedside Commode Bedside Commode # Voids 1 1 # Bowel Movements 1 - Labs CBC & Chem 7: 10/30/23 09:05 10/30/23 09:05
--- NOTE | 2023-10-30 14:17 | P.PN ---
Subjective Progress Note Date: 10/30/23 73-year-old pleasant female came in after a fall. Patient is found to be in atrial fibrillation with ventricular rate. Patient is presently on amiodarone patient was on Cardizem patient blood pressure is low. Patient had a echocardiogram which showed ejection fraction of 60 to 65%. Patient does take Lasix at home. Patient is also on benazepril. I do not have any BNP available chest x-ray available in this facility. Patient was recently diagnosed with Crohn's disease although not common at this stage. Patient was on IV heparin which was discontinued because of the rectal rectal bleed and Crohn's. Patient was diagnosed with cellulitis although I did not see any cellulitis patient appears to have some osteoarthritis of the left ankle. Patient will not require any antibiotics at this time. 10/30/2023 Patient is evaluated in follow-up sitting up in the chair with family at the bedside. She is denying any chest pressure and not having any palpitations. She remains in atrial fibrillation with rapid ventricular rate in the low 100s. She has been continued on IV amiodarone with plans to transition to oral medications today. She is no longer having any episodes of rectal bleeding was never started on IV heparin. Echocardiogram 3 5 or wall abnormalities. She was recently started on oral prednisone outpatient for an acute Crohn's exacerbation. She follows with Dr. Alberto Campos was was to be getting an infusion on and she is wondering which 1 and what of this cardiac side effects for this. She is currently refusing the prednisone she believes this is why she is in atrial fibrillation. GI will be consulted here for further evaluation. Hemoglobin remained stable at 9.8. Her sodium level is 129. Review of Systems Constitutional: Denied any fatigue denied any fever. Cardio vascular: denied any chest pain, palpitations Gastrointestinal: denied any nausea, vomiting, diarrhea Pulmonary: Denied any shortness of breath cough Neurologic denied any new focal deficits All inpatient medications were reviewed and appropriate changes in these medications as dictated in the interval history and assessment and plan. PHYSICAL EXAMINATION: GENERAL: The patient is alert and oriented x3, not in any acute distress. Well developed, well nourished. HEENT: Pupils are round and equally reacting to light. EOMI. No scleral icterus. No conjunctival pallor. Normocephalic, atraumatic. No pharyngeal erythema. No thyromegaly. CARDIOVASCULAR: S1 and S2 present. No murmurs, rubs, or gallops. Tachycardic irregularly irregular rhythm PULMONARY: Chest is clear to auscultation, no wheezing or crackles. ABDOMEN: Soft, nontender, nondistended, normoactive bowel sounds. No palpable organomegaly. MUSCULOSKELETAL: No joint swelling or deformity. EXTREMITIES: No cyanosis, clubbing, patient does have significant bilateral pitting pedal edema NEUROLOGICAL: Gross neurological examination did not reveal any focal deficits. SKIN: No rashes. Assessment and plan -New onset atrial fibrillation with rapid ventricular rate continue with amiodarone, anticoagulation is on hold because of the rectal bleed. Transitioned to oral amiodarone. -Possibly of congestive heart failure chronic diastolic function. BNP and a chest x-ray patient blood pressure is low because of which I am not initiating her on diuretics at this time patient probably will need dose once the blood pressure improves -Hypervolemic hyponatremia Patient is resumed on oral lasix and expecting sodium level to improve. Labs will be repeat in the AM. -Recent's Crohn's diagnosis without any exacerbation at this time patient did have rectal bleed because of which anticoagulation is on hold; refusing the oral prednisone. GI evaluation -Hypertension -Hypothyroidism -Mechanical fall physical therapy occupational therapy evaluation History of asthma without any acute exacerbation DVT prophylaxis: Patient is anticoagulation is on hold because of rectal bleed The impression and plan of care has been dictated by Margie Christianson, Nurse Practitioner as directed. Dr. Wilma MD I have performed a history and physical examination and medical decision making of this patient, discussed the same with the dictator, and agree with the dictators assessment and plan as written, documented as a scribe. Based on total visit time, I have performed more than 50% of this visit. Objective - Vital Signs Vital signs: Vital Signs Temp 97.3 F L 10/30/23 11:36 Pulse 97 10/30/23 11:36 Resp 18 10/30/23 11:36 BP 100/68 10/30/23 11:36 Pulse Ox 97 10/30/23 11:36 FiO2 Intake & Output 10/29/23 10/30/23 10/30/23 18:59 06:59 18:59 Intake Total 540 227.505 980 Output Total 780 Balance 540 -552.495 980 Weight 78.744 kg 80.1 kg Intake: Intake, IV Titration 227.505 150 Amount Amiodarone 450 mg In 227.505 Dextrose 5% in Water 250 ml @ 0.5 MG/MIN 16.667 mls/hr IV .Q15H [facility] Rx#: [id number] Sodium Chloride 0.9% 1, 150 000 ml @ 50 mls/hr IV . Q20H [facility] Rx#:[id number] Oral 540 830 Output: Urine 780 Other: Voiding Method Bedside Commode Bedside Commode # Voids 1 1 1 # Bowel Movements 1 1 - Labs CBC & Chem 7: 10/30/23 09:05 10/30/23 09:05 Labs: Abnormal Lab Results - Last 24 Hours (Table) 10/30/23 10/30/23 Range/Units 09:05 09:05 WBC 12.1 H (3.8-10.6) k/uL RBC 3.42 L (3.80-5.40) m/uL Hgb 9.8 L (11.4-16.0) gm/dL Hct 31.4 L (34.0-46.0) % Plt Count 506 H (150-450) k/uL Sodium 129 L (137-145) mmol/L Chloride 95 L (98-107) mmol/L Glucose 130 H (74-99) mg/dL Calcium 7.8 L (8.4-10.2) mg/dL Assessment and Plan Time with Patient: Less than 30
--- NOTE | 2023-10-30 14:44 | P.CONS ---
History of Present Illness - Reason for Consult Consult date: 10/30/23 Crohn's disease, rectal bleeding Requesting physician: Margie Christianson - Chief Complaint Fall - History of Present Illness This is a pleasant 73-year-old female who presented to the emergency department 2 days ago with complaints of a mechanical fall. Apparently patient has been having increased weakness, increased swelling in her lower extremities as well as a wound to her foot. Patient was noted to have new onset atrial fibrillation as well as hypotension and was admitted to the hospital. She was initially started on a heparin drip as well as a Cardizem drip. She has a recent diagnosis of Crohn's colitis and underwent colonoscopy with Dr. Campos in [place]. She was started on prednisone and balsalazide. Apparently once patient was started on heparin she did have some rectal bleeding yesterday the heparin was subsequently discontinued and no anticoagulation was resumed. She has not had any further rectal bleeding. She states she has about 6 liquid bowel movements daily. Denies any abdominal pain, nausea or vomiting. Patient is being followed by cardiology. She states that she refused her prednisone during this hospitalization because she thought it may have caused her atrial fibrillation. Hemoglobin 9.8 on admission and remained stable at 9.8 today. She does have elevated white blood count, may be secondary to steroids. Patient currently states that she is still feeling weak, legs feel heavy. She states she was up and able to walk around with assistance with Occupational Therapy. She is able to get up and walk to the bathroom. Review of Systems REVIEW OF SYSTEMS: CARDIOPULMONARY: No chest pain or shortness of breath. Lower extremity swelling. Gastrointestinal: No abdominal pain. No nausea or vomiting. No hematemesis, coffee-ground emesis. Rectal bleeding x 1 episode yesterday. Patient otherwise has multiple loose brown bowel movements daily. GENITOURINARY: No dysuria or hematuria. MUSCULOSKELETAL: Reports normal range of motion., Joint pain. SKIN: No rashes. No jaundice. Foot wound. ENDOCRINE: No chills, fevers. No excessive weight gain or loss. No polydipsia or polyuria. PSYCHIATRIC: Unremarkable. NEUROLOGY: No change in mental status. Denies dizziness, headache. ENT: Vision unremarkable. CONSTITUTIONAL: No recent weight loss. No fever, chills, night sweats. Incre ased weakness. Past Medical History Past Medical History: Asthma, Hyperlipidemia, Hypertension Additional Past Medical History / Comment(s): Colitis, Hypothyroidism History of Any Multi-Drug Resistant Organisms: None Reported Past Surgical History: Bladder Surgery Additional Past Surgical History / Comment(s): Colonoscopy Past Anesthesia/Blood Transfusion Reactions: No Reported Reaction Smoking Status: Former smoker Medications and Allergies Home Medications Medication Instructions Recorded Confirmed Type Albuterol Sulfate [Accuneb] 3 ml INHALATION RT-Q4H PRN 10/28/23 10/28/23 History Albuterol Sulfate [Ventolin HFA] 2 puff INHALATION RT-Q4H PRN 10/28/23 10/28/23 History Ascorbic Acid [Vitamin C] 1,000 mg PO DAILY 10/28/23 10/28/23 History Balsalazide Disodium 2,250 mg PO TID 10/28/23 10/28/23 History Benazepril HCl 40 mg PO DAILY 10/28/23 10/28/23 History Calcium Citrate/Vitamin D3 1 tab PO DAILY 10/28/23 10/28/23 History [Citracal + D Maximum Caplet] Cholecalciferol [Vitamin D3 (25 25 mcg PO DAILY 10/28/23 10/28/23 History Mcg = 1000 Iu)] EPINEPHrine (Auto Inject) [Epipen] 0.3 mg IM ONCE PRN 10/28/23 10/28/23 History Fluticasone Propionate 110 Mcg 1 puff INHALATION RT-BID 10/28/23 10/28/23 History [Flovent 110 Mcg Inhaler] Furosemide [Lasix] 20 mg PO DAILY 10/28/23 10/28/23 History Garlic 1,000 mg PO DAILY 10/28/23 10/28/23 History Levothyroxine Sodium 25 mcg PO DAILY 10/28/23 10/28/23 History Multivitamins, Thera [Multivitamin 1 tab PO DAILY 10/28/23 10/28/23 History (formulary)] Red Yeast Rice 1,200 mg PO DAILY 10/28/23 10/28/23 History Ubidecarenone [Coenzyme Q10] 100 mg PO DAILY 10/28/23 10/28/23 History Zinc Gluconate [Zinc] 50 mg PO DAILY 10/28/23 10/28/23 History predniSONE 40 mg PO DAILY 10/28/23 10/28/23 History Allergies Allergy/AdvReac Type Severity Reaction Status Date / Time No Known Allergies Allergy Verified 03/17/24 16:03 Physical Exam Vitals: Vital Signs Temp Pulse Resp BP Pulse Ox 10/30/23 11:36 97.3 F L 97 18 100/68 97 10/30/23 08:40 119 H 10/30/23 08:00 97.5 F L 119 H 18 104/70 96 10/30/23 04:00 97.7 F 119 H 18 98/69 93 L 10/30/23 02:00 114 H 18 10/30/23 00:00 97.9 F 114 H 18 129/88 93 L 10/29/23 20:00 97.5 F L 108 H 18 110/77 96 10/29/23 16:00 97.5 F L 92 18 101/67 97 10/29/23 14:00 100 18 10/29/23 13:30 100 102/69 Intake and Output 10/29/23 10/30/23 10/30/23 22:59 06:59 14:59 Intake Total 180 227.505 980 Output Total 780 Balance 180 -552.495 980 Intake: Intake, IV Titration 227.505 150 Amount Amiodarone 450 mg In 227.505 Dextrose 5% in Water 250 ml @ 0.5 MG/MIN 16.667 mls/hr IV .Q15H [facility] Rx#: [id number] Sodium Chloride 0.9% 1, 150 000 ml @ 50 mls/hr IV . Q20H [facility] Rx#:[id number] Oral 180 830 Output: Urine 780 Other: Voiding Method Bedside Commode Bedside Commode # Voids 1 1 1 # Bowel Movements 1 1 1 Weight 80.1 kg General appearance: The patient is alert, oriented, appears in no acute distress. HET: Head is normocephalic and atraumatic. Conjunctiva pink. Sclera anicteric. Neck: Supple without lymphadenopathy. Trachea midline. Heart: Regular. Lungs: Equal expansion, normal respiratory effort. Abdomen: Soft, nontender, nondistended with bowel sounds. No guarding or rigidity. Skin: No rashes. No jaundice. Extremities: Normal skin color and turgor. Bilateral lower extremity pitting edema Neurological: No focal deficits. Alert and oriented x3. Results CBC & Chem 7: 10/30/23 09:05 10/30/23 09:05 Labs: Abnormal Lab Results - Last 24 Hours (Table) 10/30/23 10/30/23 Range/Units 09:05 09:05 WBC 12.1 H (3.8-10.6) k/uL RBC 3.42 L (3.80-5.40) m/uL Hgb 9.8 L (11.4-16.0) gm/dL Hct 31.4 L (34.0-46.0) % Plt Count 506 H (150-450) k/uL Sodium 129 L (137-145) mmol/L Chloride 95 L (98-107) mmol/L Glucose 130 H (74-99) mg/dL Calcium 7.8 L (8.4-10.2) mg/dL Assessment and Plan (1) Crohn's disease Narrative/Plan: 73-year-old female presenting to the hospital for weakness, fall due to wound on foot. Recently diagnosed with Crohn's disease in the last 2 months duration[address] Follow[address] with [address]. Campos and was started on balsalazide and prednisone 40 mg taper dose. Patient reportedly has approximately 6 loose brown bowel movements daily. She was admitted to the hospital and noted to have atrial fibrillation and was started on a heparin drip. Following that she had small amount of rectal bleeding x 1 episode yesterday. No further rectal bleeding as patient's anticoagulation was discontinued. Patient is supposed to start infusions on 11/08/2023 according to her . They are unsure which infusion. Patient has not been taking her prednisone since she has been in the hospital as she has been refusing them. Discussed this is not a cause for atrial fibrillation. However will transition her to IV Solu-Medrol 20 mg every 8 hours while in hospital with discharge home on prednisone 40 mg daily. No plans on endoscopic evaluation. Hemoglobin is stable with no further bleeding. May give anticoagulation if needed. Current Visit: Yes Status: Acute Code(s): K50.90 - CROHN'S DISEASE, UNSPECIFIED, WITHOUT COMPLICATIONS SNOMED Code(s): 35093129 (2) Fall Current Visit: Yes Status: Acute Code(s): W19.XXXA - UNSPECIFIED FALL, INITIAL ENCOUNTER SNOMED Code(s): 5404668 (3) Atrial fibrillation with RVR Current Visit: Yes Status: Acute Code(s): I48.91 - UNSPECIFIED ATRIAL FIBR ILLATION SNOMED Code(s): 103170806911730 (4) Hyponatremia Current Visit: Yes Status: Acute Code(s): E87.1 - HYPO-OSMOLALITY AND HYPONATREMIA SNOMED Code(s): 89591438 Plan: 1. Continue symptomatic and supportive care 2. Daily CBC, transfuse for hemoglobin less than 7 3. 3. Will start Solu-Medrol 20 mg every 8 hours while in hospital 4. Continue prednisone and balsalazide on discharge 5. Continue with recommendations from cardiology 6. Follow-up with Dr. Campos as scheduled 7. No plans on endoscopic evaluation. Patient recently had colonoscopy and [place] within the last 3 months. Thank you for this consultation, we will follow. Dr. Alberto Campos I agree with the dictator's note, documented as a scribe by Lilian Garsia.
[2023-10-30] MEDS: methylPREDNISolone SOD SUCCI 40 MG/ML 1 ML VIAL IV SCH (16:24)
[2023-10-30] MEDS: METOPROLOL TARTRATE 50 MG TAB PO SCH (21:06)
[2023-10-31 08:21] LABS: African American GFR (CKD) >90 (>60 ml/min/1.73 sqM); Anion Gap 8 mmol/L; Blood Urea Nitrogen 12 mg/dL (7-17); Calcium 8.4 mg/dL (8.4-10.2); Carbon Dioxide 27 mmol/L (22-30); Chloride 94 mmol/L (98-107); Glucose 155 mg/dL (74-99); Non-African American GFR(CKD) 81 (>60 ml/min/1.73 sqM); Potassium 4.1 mmol/L (3.5-5.1); Sodium 129 mmol/L (137-145)
[2023-10-31 09:31] LABS: Basophils # (A) 0.1 k/uL (0-0.2); Basophils % (A) 0 %; Eosinophils % (A) 0 %; HGB 10.8 gm/dL (11.4-16.0); Hypochromasia Slight; Lymphocytes # (A) 0.7 k/uL (1.0-4.8); Lymphocytes % (A) 5 %; MCH 28.3 pg (25.0-35.0); MCV 91.4 fL (80.0-100.0); Mean Platelet Volume 8.9; Monocytes # (A) 0.4 k/uL (0-1.0); Monocytes % (A) 3 %; Neutrophils # (A) 12.1 k/uL (1.3-7.7); Neutrophils % (A) 91 %; Platelet Count 494 k/uL (150-450); RBC 3.83 m/uL (3.80-5.40); RDW 15.3 % (11.5-15.5); WBC 13.3 k/uL (3.8-10.6)
--- NOTE | 2023-10-31 11:14 | P.PN ---
Subjective Progress Note Date: 10/31/23 Principal diagnosis: Crohn's disease This is a pleasant 73-year-old female who presented to the emergency department 2 days ago with complaints of a mechanical fall. Apparently patient has been having increased weakness, increased swelling in her lower extremities as well as a wound to her foot. Patient was noted to have new onset atrial fibrillation as well as hypotension and was admitted to the hospital. She was initially started on a heparin drip as well as a Cardizem drip. She has a recent diagnosis of Crohn's colitis and underwent colonoscopy with Dr. Campos in [facility]. She was started on prednisone and balsalazide. Apparently once patient was started on heparin she did have some rectal bleeding yesterday the heparin was subsequently discontinued and no anticoagulation was resumed. She has not had any further rectal bleeding. She states she has about 6 liquid bowel movements daily. Denies any abdominal pain, nausea or vomiting. Patient is being followed by cardiology. She states that she refused her prednisone during this hospitalization because she thought it may have caused her atrial fibrillation. Hemoglobin 9.8 on admission and remained stable at 9.8 today. She does have elevated white blood count, may be secondary to steroids. Patient currently states that she is still feeling weak, legs feel heavy. She states she was up and able to walk around with assistance with Occupational Therapy. She is able to get up and walk to the bathroom. 10/31/2023 Patient seen and examined today as a follow-up. She has had no further rectal bleeding. States she is actually having formed bowel movements. Denies any abdominal pain, nausea or vomiting. Objective - Vital Signs Vital signs: Vital Signs Temp 98.5 F 10/31/23 04:32 Pulse 115 H 10/31/23 08:57 Resp 16 10/31/23 08:57 BP 90/52 10/31/23 09:22 Pulse Ox 96 10/31/23 08:57 FiO2 Intake & Output 10/30/23 10/31/23 10/31/23 18:59 06:59 18:59 Intake Total 1310 180 Balance 1310 180 Weight 78.2 kg Intake: Intake, IV Titration 150 Amount Sodium Chloride 0.9% 1, 150 000 ml @ 50 mls/hr IV . Q20H [facility] Rx#:[id number] Oral 1160 180 Other: Voiding Method Bedside Commode # Voids 1 3 1 # Bowel Movements 1 3 - Exam General appearance: The patient is alert, oriented, appears in no acute distress. HET: Head is normocephalic and atraumatic. Conjunctiva pink. Sclera anicteric. Neck: Supple without lymphadenopathy. Abdomen: Soft, nontender, nondistended with bowel sounds. No guarding or rigidity. Extremities: Normal skin color and turgor. No pedal edema Skin: No rashes, no jaundice Neurological: No focal deficits. Alert and oriented. - Labs CBC & Chem 7: 10/31/23 07:36 10/31/23 07:36 Labs: Abnormal Lab Results - Last 24 Hours (Table) 10/30/23 10/31/23 10/31/23 Range/Units 09:05 07:36 07:36 WBC 13.3 H (3.8-10.6) k/uL Hgb 10.8 L (11.4-16.0) gm/dL Plt Count 494 H (150-450) k/uL Neutrophils # 12.1 H (1.3-7.7) k/uL Lymphocytes # 0.7 L (1.0-4.8) k/uL Sodium 129 L 129 L (137-145) mmol/L Chloride 95 L 94 L (98-107) mmol/L Glucose 130 H 155 H (74-99) mg/dL Calcium 7.8 L (8.4-10.2) mg/dL Assessment and Plan (1) Crohn's disease Narrative/Plan: 73-year-old female presenting to the hospital for weakness, fall due to wound on foot. Recently diagnosed with Crohn's disease in the last 2 months duration[address] Follows with Dr. Campos and was started on balsalazide and prednisone 40 mg taper dose. Patient reportedly has approximately 6 loose brown bowel movements daily. She was admitted to the hospital and noted to have atrial fibrillation and was started on a heparin drip. Following that she had small amount of rectal bleeding x 1 episode yesterday. No further rectal bleeding as patient's anticoagulation was discontinued. Patient is supposed to start infusions on according to her . They are unsure which infusion. Patient has not been taking her prednisone since she has been in the hospital as she has been refusing them. Discussed this is not a cause for atrial fibrillation. However will transition her to IV Solu-Medrol 20 mg every 8 hours while in hospital with discharge home on prednisone 40 mg daily. No plans on endoscopic evaluation. Hemoglobin is stable with no further bleeding. May give anticoagulation if needed. Current Visit: Yes Status: Acute Code(s): K50.90 - CROHN'S DISEASE, UNSPECIFIED, WITHOUT COMPLICATIONS SNOMED Code(s): 69121383 (2) Fall Current Visit: Yes Status: Acute Code(s): W19.XXXA - UNSPECIFIED FALL, IN ITIAL ENCOUNTER SNOMED Code(s): 7509125 (3) Atrial fibrillation with RVR Current Visit: Yes Status: Acute Code(s): I48.91 - UNSPECIFIED ATRIAL FIBRILLATION SNOMED Code(s): 558357340545140 (4) Hyponatremia Current Visit: Yes Status: Acute Code(s): E87.1 - HYPO-OSMOLALITY AND HYPONATREMIA SNOMED Code(s): 26074046 Plan: 1. Continue symptomatic and supportive care 2. Will start Solu-Medrol 20 mg every 8 hours while in hospital, transition back to prednisone on discharge. Patient to complete her prescription at home 3. Continue prednisone and balsalazide on discharge. Balsalazide per GRIPT[facility] sent to pharmacy 4. Continue with recommendations from cardiology 5. Follow-up with Dr. Campos as scheduled 6. No plans on endoscopic evaluation. Patient recently had colonoscopy and [place] within the last 3 months. Thank you for this consultation, patient is cleared from gastroenterology for discharge. We will sign off at this time. Dr. Alberto Campos I agree with the dictator's note, documented as a scribe by Lilian Garsia.
--- NOTE | 2023-10-31 11:55 | P.PN ---
Subjective HISTORY OF PRESENT ILLNESS: This is a 73 year old female with a past medical history significant for hypertension, hypothyroidism, and Crohn's disease. Patient follows with a staff mechanical engineer. We have been asked to see the patient in consultation for new onset atrial fibrillation. Patient examined at the bedside. Patient initially presented to the hospital after sustaining a fall. She states that she was diagnosed recently with left foot cellulitis. The patient was also found to be in A-fib with RVR. She denies a previous history of atrial fibrillation. She denied having any palpitations. She denies any chest pain or pressure. She denies shortness of breath. The patient was started on IV heparin. She did develop bright red blood per rectum this morning and her IV heparin has been discontinued. She does report that she was recently diagnosed with Crohn's disease and was started on steroids on an outpatient basis. This morning she remains in atrial fibrillation with heart rate between 332049. DIAGNOSTICS: - EKG reveals atrial fibrillation with RVR. Heart rate 120. No signs of acute ischemia - Laboratory data: WBC 11.3. Hemoglobin 9.6. Platelet count 475. Sodium 128. Potassium 3.5. BUN 15. Creatinine 0.71. Magnesium 2.0. Troponin negative x 1. TSH 1.180 - Current home cardiac medications include Lasix 20 mg daily and benazepril 40 mg daily 10/30/2023 Patient examined this morning at the bedside. Patient is sitting up in the chair. Patient currently denies chest pain or pressure. She denies shortness o f breath. Patient remains in atrial fibrillation with heart rate around 110. IV heparin was discontinued yesterday secondary to rectal bleeding. Echocardiogram obtained revealing ejection fraction 60 to 65%, no obvious regional wall motion abnormalities and no significant valvular dysfunction. 10/31/2023 Patient examined this morning. She is sitting up in the chair. Patient's is present. Patient denies any chest pain or pressure. She denies any shortness of breath. Telemetry reveals atrial fibrillation with controlled ventricular rates. PHYSICAL EXAM: VITAL SIGNS: Reviewed. GENERAL: Well-developed in no acute distress. HEENT: Head is normocephalic. Pupils are equal, round. Sclerae anicteric. Mucous membranes of the mouth are moist. Neck supple. No JVD or thyromegaly LUNGS: Respirations even and unlabored. Lungs essentially clear to auscultation bilaterally. HEART: Tachycardic. Irregular rate and rhythm. S1 and S2 heard. ABDOMEN: Soft. Nondistended. Nontender. EXTREMITIES: Normal range of motion. No clubbing or cyanosis. Peripheral pulses intact. 2+ bilateral lower extremity edema, worse at the feet/ankles NEUROLOGIC: Awake and alert. Oriented x 3. ASSESSMENT: Recent diagnosis of left foot cellulitis, appears to be resolved S/P mechanical fall New onset atrial fibrillation with RVR Bright red blood per rectum, after initiation of IV Heparin Recent diagnosis of Crohn's disease Hyponatremia Hypertension Hypothyroidism Family history of CAD PLAN: Will not initiate oral anticoagulation at this time secondary to bright red blood rectum this admission. This can be reevaluated on an outpatient basis. Oral Lasix was resumed yesterday. Continue current dose. Monitor sodium levels. Continue current dose of metoprolol Continue oral amiodarone. Taper at discharge includes 400 mg twice a day for 1 week, then decrease to 200 mg twice a day for 1 week, then decrease to 200 mg daily Continue telemetry monitoring Patient is currently stable from a cardiac standpoint Patient is to follow-up postdischarge with Dr. Crouch Nurse practitioner note has been reviewed by physician. Signing provider agrees with the documented findings, assessment, and plan of care documented by OUTBOUND SALES EXECUTIVE as a scribe. Objective - Vital Signs Vital signs: Vital Signs Temp 98.5 F 10/31/23 04:32 Pulse 86 10/31/23 11:48 Resp 16 10/31/23 11:48 BP 91/56 10/31/23 11:48 Pulse Ox 97 10/31/23 11:48 FiO2 Intake & Output 10/30/23 10/31/23 10/31/23 18:59 06:59 18:59 Intake Total 1310 180 Balance 1310 180 Weight 78.2 kg Intake: Intake, IV Titration 150 Amount Sodium Chloride 0.9% 1, 150 000 ml @ 50 mls/hr IV . Q20H [facility] Rx#:[id number] Oral 1160 180 Other: Voiding Method Bedside Commode # Voids 1 3 1 # Bowel Movements 1 3 - Labs CBC & Chem 7: 10/31/23 07:36 10/31/23 07:36 Labs: Abnormal Lab Results - Last 24 Hours (Table) 10/31/23 10/31/23 Range/Units 07:36 07:36 WBC 13.3 H (3.8-10.6) k/uL Hgb 10.8 L (11.4-16.0) gm/dL Plt Count 494 H (150-450) k/uL Neutrophils # 12.1 H (1.3-7.7) k/uL Lymphocytes # 0.7 L (1.0-4.8) k/uL Sodium 129 L (137-145) mmol/L Chloride 94 L (98-107) mmol/L Glucose 155 H (74-99) mg/dL
[2023-10-31 23:22] VITALS: RESP 16
[2023-11-01 08:32] VITALS: TEMP 97.3
[2023-11-01 08:58] LABS: African American GFR (CKD) 85 (>60 ml/min/1.73 sqM); Anion Gap 7 mmol/L; Blood Urea Nitrogen 15 mg/dL (7-17); Calcium 8.2 mg/dL (8.4-10.2); Carbon Dioxide 28 mmol/L (22-30); Chloride 93 mmol/L (98-107); Glucose 193 mg/dL (74-99); Non-African American GFR(CKD) 74 (>60 ml/min/1.73 sqM); Potassium 4.3 mmol/L (3.5-5.1); Sodium 128 mmol/L (137-145)
[2023-11-01 12:07] VITALS: PULSE 85
[2023-11-01 12:43] VITALS: BP 82/62
--- NOTE | 2023-11-01 12:56 | P.PN ---
Subjective HISTORY OF PRESENT ILLNESS: This is a 73 year old female with a past medical history significant for hypertension, hypothyroidism, and Crohn's disease. Patient follows with a newspaper manager. We have been asked to see the patient in consultation for new onset atrial fibrillation. Patient examined at the bedside. Patient initially presented to the hospital after sustaining a fall. She states that she was diagnosed recently with left foot cellulitis. The patient was also found to be in A-fib with RVR. She denies a previous history of atrial fibrillation. She denied having any palpitations. She denies any chest pain or pressure. She denies shortness of breath. The patient was started on IV heparin. She did develop bright red blood per rectum this morning and her IV heparin has been discontinued. She does report that she was recently diagnosed with Crohn's disease and was started on steroids on an outpatient basis. This morning she remains in atrial fibrillation with heart rate between 784115. DIAGNOSTICS: - EKG reveals atrial fibrillation with RVR. Heart rate 120. No signs of acute ischemia - Laboratory data: WBC 11.3. Hemoglobin 9.6. Platelet count 475. Sodium 128. Potassium 3.5. BUN 15. Creatinine 0.71. Magnesium 2.0. Troponin negative x 1. TSH 1.180 - Current home cardiac medications include Lasix 20 mg daily and benazepril 40 mg daily 10/30/2023 Patient examined this morning at the bedside. Patient is sitting up in the chair. Patient currently denies chest pain or pressure. She denies shortness o f breath. Patient remains in atrial fibrillation with heart rate around 110. IV heparin was discontinued yesterday secondary to rectal bleeding. Echocardiogram obtained revealing ejection fraction 60 to 65%, no obvious regional wall motion abnormalities and no significant valvular dysfunction. 10/31/2023 Patient examined this morning. She is sitting up in the chair. Patient's is present. Patient denies any chest pain or pressure. She denies any shortness of breath. Telemetry reveals atrial fibrillation with controlled ventricular rates. 11/01/2023 Patient examined this morning. No family present. Patient denies chest pain or pressure. She denies shortness of breath. Vital signs are stable. Telemetry reveals atrial fibrillation with controlled ventricular rates. PHYSICAL EXAM: VITAL SIGNS: Reviewed. GENERAL: Well-developed in no acute distress. HEENT: Head is normocephalic. Pupils are equal, round. Sclerae anicteric. Mucous membranes of the mouth are moist. Neck supple. No JVD or thyromegaly LUNGS: Respirations even and unlabored. Lungs essentially clear to auscultation bilaterally. HEART: Irregular rate and rhythm. S1 and S2 heard. ABDOMEN: Soft. Nondistended. Nontender. EXTREMITIES: Normal range of motion. No clubbing or cyanosis. Peripheral pulses intact. 2+ bilateral lower extremity edema, worse at the feet/ankles NEUROLOGIC: Awake and alert. Oriented x 3. ASSESSMENT: Recent diagnosis of left foot cellulitis, appears to be resolved S/P mechanical fall New onset atrial fibrillation with RVR, currently rate controlled Bright red blood per rectum, after initiation of IV Heparin Recent diagnosis of Crohn's disease Hyponatremia Hypertension Hypothyroidism Family history of CAD PLAN: Will not initiate oral anticoagulation at this time secondary to bright red blood rectum this admission. This can be reevaluated on an outpatient basis. Continue current cardiac medications Continue oral amiodarone. Taper at discharge includes 400 mg twice a day for 1 week, then decrease to 200 mg twice a day for 1 week, then decrease to 200 mg daily Continue telemetry monitoring Patient is currently stable from a cardiac standpoint Patient is to follow-up postdischarge with Dr. Crouch Nurse practitioner note has been reviewed by physician. Signing provider agrees with the documented findings, assessment, and plan of care documented by SALES DEVELOPMENT SPECIALIST as a scribe. Objective - Vital Signs Vital signs: Vital Signs Temp 97.3 F L 11/01/23 08:14 Pulse 85 11/01/23 11:28 Resp 16 11/01/23 11:28 BP 82/62 11/01/23 12:14 Pulse Ox 96 11/01/23 11:28 FiO2 Intake & Output 10/31/23 11/01/23 11/01/23 18:59 06:59 18:59 Intake Total 540 200 Balance 540 200 Intake: Oral 540 200 Other: Voiding Method Bedside Commode Bedside Commode Toilet # Voids 1 1 # Bowel Movements 1 - Labs CBC & Chem 7: 10/31/23 07:36 11/01/23 08:02 Labs: Abnormal Lab Results - Last 24 Hours (Table) 11/01/23 Range/Units 08:02 Sodium 128 L (137-145) mmol/L Chloride 93 L (98-107) mmol/L Glucose 193 H (74-99) mg/dL Calcium 8.2 L (8.4-10.2) mg/dL
--- NOTE | 2023-11-01 15:24 | P.PN ---
Subjective Progress Note Date: 10/31/23 73-year-old pleasant female came in after a fall. Patient is found to be in atrial fibrillation with ventricular rate. Patient is presently on amiodarone patient was on Cardizem patient blood pressure is low. Patient had a echocardiogram which showed ejection fraction of 60 to 65%. Patient does take Lasix at home. Patient is also on benazepril. I do not have any BNP available chest x-ray available in this facility. Patient was recently diagnosed with Crohn's disease although not common at this stage. Patient was on IV heparin which was discontinued because of the rectal rectal bleed and Crohn's. Patient was diagnosed with cellulitis although I did not see any cellulitis patient appears to have some osteoarthritis of the left ankle. Patient will not require any antibiotics at this time. 10/30/2023 Patient is evaluated in follow-up sitting up in the chair with family at the bedside. She is denying any chest pressure and not having any palpitations. She remains in atrial fibrillation with rapid ventricular rate in the low 100s. She has been continued on IV amiodarone with plans to transition to oral medications today. She is no longer having any episodes of rectal bleeding was never started on IV heparin. Echocardiogram 3 5 or wall abnormalities. She was recently started on oral prednisone outpatient for an acute Crohn's exacerbation. She follows with Dr. Alberto Campos was was to be getting an infusion on and she is wondering which 1 and what of this cardiac side effects for this. She is currently refusing the prednisone she believes this is why she is in atrial fibrillation. GI will be consulted here for further evaluation. Hemoglobin remained stable at 9.8. Her sodium level is 129. 10/31/2023 Patient evaluated in follow up on the medical floor. Denies shortness of breath and continue on room air. Patient has been resumed on oral lasix daily. Does continue to have lower extremity edema. Was resumed on IV steroids while inpatient and recommended to continue on oral prednisone on discharge by GI. GI gave clearance for anticoagulation. Review of Systems Constitutional: Denied any fatigue denied any fever. Cardio vascular: denied any chest pain, palpitations Gastrointestinal: denied any nausea, vomiting, diarrhea Pulmonary: Denied any shortness of breath cough Neurologic denied any new focal deficits All inpatient medications were reviewed and appropriate changes in these medications as dictated in the interval history and assessment and plan. PHYSICAL EXAMINATION: GENERAL: The patient is alert and oriented x3, not in any acute distress. Well developed, well nourished. HEENT: Pupils are round and equally reacting to light. EOMI. No scleral icterus. No conjunctival pallor. Normocephalic, atraumatic. No pharyngeal erythema. No thyromegaly. CARDIOVASCULAR: S1 and S2 present. No murmurs, rubs, or gallops. Tachycardic irregularly irregular rhythm PULMONARY: Chest is clear to auscultation, no wheezing or crackles. ABDOMEN: Soft, nontender, nondistended, normoactive bowel sounds. No palpable organomegaly. MUSCULOSKELETAL: No joint swelling or deformity. EXTREMITIES: No cyanosis, clubbing, patient does have significant bilateral pitting pedal edema NEUROLOGICAL: Gross neurological examination did not reveal any focal deficits. SKIN: No rashes. Assessment and plan -New onset atrial fibrillation with rapid ventricular rate continue with amiodarone, anticoagulation is on hold because of the rectal bleed. Transitioned to oral amiodarone. -Possibly of congestive heart failure chronic diastolic function. Resumed on oral lasix -Hypervolemic hyponatremia Patient is resumed on oral lasix and expecting sodium level to improve. Labs will be repeat in the AM. -Recent's Crohn's diagnosis without any exacerbation at this time patient did have rectal bleed because of which anticoagulation is on hold; resumed on IV steroids was evaluated in consultation by GI services. Will continue on prednisone on discharge. -Hypertension Currently hypotensive with BP in the 90s systolic. -Hypothyroidism -Mechanical fall physical therapy occupational therapy evaluation recommending home on discharge. History of asthma without any acute exacerbation DVT prophylaxis: Patient is anticoagulation is on hold because of rectal bleed The impression and plan of care has been dictated by Margie Christianson Nurse Practitioner as directed. Dr. Wilma MD I have performed a history and physical examination and medical decision making of this patient, discussed the same with the dictator, and agree with the dictators assessment and plan as written, documented as a scribe. Based on total visit time, I have performed more than 50% of this visit. Objective - Vital Signs Vital signs: Vital Signs Temp 97.3 F L 11/01/23 08:14 Pulse 85 11/01/23 11:28 Resp 16 11/01/23 11:28 BP 82/62 11/01/23 12:14 Pulse Ox 96 11/01/23 11:28 FiO2 Intake & Output 10/31/23 11/01/23 11/01/23 18:59 06:59 18:59 Intake Total 540 200 Balance 540 200 Intake: Oral 540 200 Other: Voiding Method Bedside Commode Bedside Commode Toilet # Voids 1 1 # Bowel Movements 1 - Labs CBC & Chem 7: 10/31/23 07:36 11/01/23 08:02 Labs: Abnormal Lab Results - Last 24 Hours (Table) 11/01/23 Range/Units 08:02 Sodium 128 L (137-145) mmol/L Chloride 93 L (98-107) mmol/L Glucose 193 H (74-99) mg/dL Calcium 8.2 L (8.4-10.2) mg/dL
--- NOTE | 2023-11-02 18:09 | P.DS ---
Providers Date of admission: 10/28/23 15:01 Attending physician: Windy Ross Consults: 10/28/23 15:01 Consult Physician Routine Consulting Provider: Toby Woods Consult Reason/Comments: new onset afib Do you want consulting provider notified?: Yes Primary care physician: Lillian Olvera, DO Hospital Course: Final Diagnosis -New onset atrial fibrillation with rapid ventricular rate continue with amiodarone, anticoagulation is on hold because of the rectal bleed. Transitioned to oral amiodarone. -Possibly of congestive heart failure chronic diastolic function. Resumed on oral lasix -Hypervolemic hyponatremia Patient is resumed on oral lasix and expecting sodium level to improve. -Recent's Crohn's diagnosis without any exacerbation at this time patient did have rectal bleed because of which anticoagulation is on hold; resumed on IV steroids was evaluated in consultation by GI services. Will continue on prednisone on discharge. -Hypertension Currently hypotensive with BP in the 90s systolic. -Hypothyroidism -Mechanical fall physical therapy occupational therapy evaluation recommending home on discharge. History of asthma without any acute exacerbation Discharge Disposition Medically patient is stable for discharge home. Amio taper at discharge: 400mg BID for 1 week, 200mg BID for 1 week, and then 200mg daily. Recommend to continue wearing compression stockings. Resumed on oral lasix. Follow up with cardiology regarding initiating anticoagulation. Follow up with GI and continue oral prednisone. Repeat labs in 2 to 3 days. Hospital Course This is a pleasant 73-year-old pleasant female came in after a fall. Patient is found to be in atrial fibrillation with rapid ventricular rate. Patient has medically history of hypothyroidism, hypertension and was recently diagnoed with Chron's disease by Dr. Alberto Campos and has been started on oral prednisone and balsalazide outpatient. She was admitted to the hospital with Cardiology consultation, started on IV cardizem and IV heparin. Did have an episode of rectal bleeding for which the heparin was stopped. Patients blood pressure also dropped with the cardizem. She was than transitioned to amiodarone. Patient had a echocardiogram which showed ejection fraction of 60 to 65%. Patient does take Lasix at home. Patient is also on benazepril, which has been placed on hold. She was hyponatremic with significant peripheral edema. GI was consulted because of the rectal bleeding. Patient was cleared for anticoagulation although patient was hesitant and this will be followed up by cardiology on an outpatient basis. Patients heart rate is now controlled she is transitioned to an oral amiodarone taper. Given IV steroids while in patient with GI recommending to resume oral prednisone on discharge. Patient not having any further reports of rectal bleeding. No chest pain no shortness of breath. BP on the lower side 90/60s and cardiology clearing for discharge. Recommending to use CHICA hose bilaterally lower extremities and this should help to bring the BP up as well as help the lower extremity edema. She was resumed on oral lasix and expecting the sodium to improve also. Please see medication reconciliation for a list of current medications. Thank you for allowing us to participate in the care of this patient. The impression and plan of care has been dictated by Margie Christianson, Nurse Practitioner as directed. Dr. Wilma MD I have performed a history and physical examination and medical decision making of this patient, discussed the same with the dictator, and agree with the dictators assessment and plan as written, documented as a scribe. Based on total visit time, I have performed more than 50% of this visit. Patient Condition at Discharge: Stable Plan - Discharge Summary Discharge Rx Participant: No New Discharge Prescriptions: New Amiodarone [Cordarone] 400 mg PO BID #180 tab Metoprolol Tartrate [Lopressor] 50 mg PO BID #180 tab Continue predniSONE 40 mg PO DAILY Red Yeast Rice 1,200 mg PO DAILY Garlic 1,000 mg PO DAILY Calcium Citrate/Vitamin D3 [Citracal + D Maximum Caplet] 1 tab PO DAILY Albuterol Sulfate [Ventolin HFA] 2 puff INHALATION RT-Q4H PRN PRN Reason: Shortness Of Breath Balsalazide Disodium 2,250 mg PO TID 30 Days #270 cap Zinc Gluconate [Zinc] 50 mg PO DAILY Cholecalciferol [Vitamin D3 (25 Mcg = 1000 Iu)] 25 mcg PO DAILY Ascorbic Acid [Vitamin C] 1,000 mg PO DAILY Multivitamins, Thera [Multivitamin (formulary)] 1 tab PO DAILY Levothyroxine Sodium 25 mcg PO DAILY Furosemide [Lasix] 20 mg PO DAILY Fluticasone Propionate 110 Mcg [Flovent 110 Mcg Inhaler] 1 puff INHALATION RT-BID EPINEPHrine (Auto Inject) [Epipen] 0.3 mg IM ONCE PRN PRN Reason: Anaphylaxis Ubidecarenone [Coenzyme Q10] 100 mg PO DAILY Albuterol Sulfate [Accuneb] 3 ml INHALATION RT-Q4H PRN PRN Reason: Shortness Of Breath Discontinued Benazepril HCl 40 mg PO DAILY Discharge Medication List Albuterol Sulfate [Accuneb] 3 ml INHALATION RT-Q4H PRN 10/28/23 [History] Albuterol Sulfate [Ventolin HFA] 2 puff INHALATION RT-Q4H PRN 10/28/23 [History] Ascorbic Acid [Vitamin C] 1,000 mg PO DAILY 10/28/23 [History] Calcium Citrate/Vitamin D3 [Citracal + D Maximum Caplet] 1 tab PO DAILY 10/28/23 [History] Cholecalciferol [Vitamin D3 (25 Mcg = 1000 Iu)] 25 mcg PO DAILY 10/28/23 [History] EPINEPHrine (Auto Inject) [Epipen] 0.3 mg IM ONCE PRN 10/28/23 [History] Fluticasone Propionate 110 Mcg [Flovent 110 Mcg Inhaler] 1 puff INHALATION RT- BID 10/28/23 [History] Furosemide [Lasix] 20 mg PO DAILY 10/28/23 [History] Garlic 1,000 mg PO DAILY 10/28/23 [History] Levothyroxine Sodium 25 mcg PO DAILY 10/28/23 [History] Multivitamins, Thera [Multivitamin (formulary)] 1 tab PO DAILY 10/28/23 [History] Red Yeast Rice 1,200 mg PO DAILY 10/28/23 [History] Ubidecarenone [Coenzyme Q10] 100 mg PO DAILY 10/28/23 [History] Zinc Gluconate [Zinc] 50 mg PO DAILY 10/28/23 [History] predniSONE 40 mg PO DAILY 10/28/23 [History] Amiodarone [Cordarone] 400 mg PO BID #180 tab 10/31/23 [Rx] Balsalazide Disodium 2,250 mg PO TID 30 Days #270 cap 10/31/23 [Rx] Metoprolol Tartrate [Lopressor] 50 mg PO BID #180 tab 10/31/23 [Rx] Follow up Appointment(s)/Referral(s): Any Kitchen MD [STAFF PHYSICIAN] - 1 Week Tip Crouch MD [STAFF PHYSICIAN] - 1 Week (Office will call the patient once they pull hosptial records. ) Lillian Olvera DO [Primary Care Provider] - 1-2 days (Office is not answering please call and schedule your follow up appointment. ) [facility] [[facility]] - Ambulatory/Diagnostic Orders: Basic Metabolic Panel [LAB.AMB] Time Frame: 3 Days, Location: None Selected Patient Instructions/Handouts: A-fib (Atrial Fibrillation) (DC), Crohn Disease (DC), Hyponatremia (DC) Activity/Diet/Wound Care/Special Instructions: Amio taper at discharge: 400mg BID for 1 week, 200mg BID for 1 week, and then 200mg daily Recommend to continue wearing compression stockings. Check your blood pressure daily in the evening and keep a log for follow up with your primary doctor and server support technician. Repeat your blood work in 2 to 3 days to monitor sodium level. Results will be faxed to your primary provider. Recommend to change positions slowly to avoid postural blood pressure changes. If you are feeling lightheaded or dizzy or your blood pressure is lower than 90/60s come back to the hospital, notify your providers. Discharge Disposition: HOME SELF-CARE
== END 2023-11-01 14:17 | disposition home or self-care (01) | DRG 309 ==
LOC: EC 14:25 → 3SCARD 15:01
PROVIDERS: ADMIT Hospitalist; ATTEND Hospitalist
PROC: 3E033RZ Introduction of Antiarrhythmic into Peripheral Vein, Percutaneous Approach (ICD-10-PCS; principal; 2023-10-29)
DX: I48.91 Unspecified atrial fibrillation (principal); E87.1 Hypo-osmolality and hyponatremia; K50.111 Crohn's disease of large intestine with rectal bleeding; I50.32 Chronic diastolic (congestive) heart failure; J45.909 Unspecified asthma, uncomplicated; E78.5 Hyperlipidemia, unspecified; I11.0 Hypertensive heart disease with heart failure; I95.9 Hypotension, unspecified; T45.515A Adverse effect of anticoagulants, initial encounter; E03.9 Hypothyroidism, unspecified; I78.1 Nevus, non-neoplastic; M19.072 Primary osteoarthritis, left ankle and foot; D72.829 Elevated white blood cell count, unspecified; T38.0X5A Adverse effect of glucocorticoids and synthetic analogues, initial encounter; W18.30XA Fall on same level, unspecified, initial encounter; Z79.52 Long term (current) use of systemic steroids; Z87.891 Personal history of nicotine dependence; Z79.899 Other long term (current) drug therapy; Z79.890 Hormone replacement therapy
CPT/HCPCS: 71045; 80048; 83735; 83880; 84443; 84484; 85025; 85027; 85730; 93005; 93306; 96365; 96375; 99285

== ENCOUNTER 2023-11-04 04:04 | Inpatient (IN) | payer MEDICARE ==
--- NOTE | 2023-11-04 04:07 | ED ---
Recheck HPI - General Stated Complaint: sepsis Time Seen by Provider: 11/04/23 04:06 Source: RN notes reviewed, old records reviewed Limitations: no limitations - History of Present Illness Initial Comments: This is a 73-year-old female accepted in transfer for sepsis rule out. Patient is recently of inpatient hospitalization at this hospital for atrial fibrillation with RVR new onset. Patient presented to the [facility] and then transferred to us for sepsis MD Complaint: abnormal lab (weak) -: days(s) Returns Today for: persistent/worsening pain related to initial visit Symptoms Since Prior Visit: no new symptoms Associated Symptoms: none Treatments Prior to Arrival: other (0) - Related Data Home Medications Medication Instructions Recorded Confirmed Albuterol Sulfate [Accuneb] 3 ml INHALATION RT-Q4H PRN 10/28/23 11/04/23 Albuterol Sulfate [Ventolin HFA] 2 puff INHALATION RT-Q4H PRN 10/28/23 11/04/23 Ascorbic Acid [Vitamin C] 1,000 mg PO DAILY 10/28/23 11/04/23 Calcium Citrate/Vitamin D3 1 tab PO DAILY 10/28/23 11/04/23 [Citracal + D Maximum Caplet] Cholecalciferol [Vitamin D3 (25 25 mcg PO DAILY 10/28/23 11/04/23 Mcg = 1000 Iu)] EPINEPHrine (Auto Inject) [Epipen] 0.3 mg IM ONCE PRN 10/28/23 11/04/23 Fluticasone Propionate 110 Mcg 1 puff INHALATION RT-BID 10/28/23 11/04/23 [Flovent 110 Mcg Inhaler] Furosemide [Lasix] 20 mg PO DAILY 10/28/23 11/04/23 Garlic 1,000 mg PO DAILY 10/28/23 11/04/23 Levothyroxine Sodium 25 mcg PO DAILY 10/28/23 11/04/23 Multivitamins, Thera [Multivitamin 1 tab PO DAILY 10/28/23 11/04/23 (formulary)] Red Yeast Rice 1,200 mg PO DAILY 10/28/23 11/04/23 Ubidecarenone [Coenzyme Q10] 100 mg PO DAILY 10/28/23 11/04/23 Zinc Gluconate [Zinc] 50 mg PO DAILY 10/28/23 11/04/23 Amiodarone [Cordarone] See Taper PO DIRECTED 11/04/23 11/04/23 Previous Rx's Medication Instructions Recorded Balsalazide Disodium 2,250 mg PO TID 30 Days #270 cap 10/31/23 Metoprolol Tartrate [Lopressor] 50 mg PO BID #180 tab 10/31/23 Cholestyramine (with Sugar) 4 gm PO TID BETWEEN MEALS #21 11/09/23 [Questran Packet] packet Vancomycin HCl [Vancocin HCl] 500 mg PO QID 14 Days #72 cap 11/09/23 predniSONE 30 mg PO DAILY #0 11/09/23 Allergies Allergy/AdvReac Type Severity Reaction Status Date / Time No Known Allergies Allergy Verified 11/04/23 04:10 Review of Systems ROS Statement: Those systems with pertinent positive or pertinent negative responses have been documented in the HPI. ROS Other: All systems not noted in ROS Statement are negative. Past Medical History Past Medical History: Asthma, Hyperlipidemia, Hypertension Additional Past Medical History / Comment(s): Colitis, Hypothyroidism History of Any Multi-Drug Resistant Organisms: None Reported Past Surgical History: Bladder Surgery Additional Past Surgical History / Comment(s): Colonoscopy Past Anesthesia/Blood Transfusion Reactions: No Reported Reaction Smoking Status: Former smoker General Exam Limitations: altered mental status General appearance: alert, in no apparent distress, anxious Head exam: Present: atraumatic, normocephalic, normal inspection Eye exam: Present: normal appearance, PERRL, EOMI. Absent: scleral icterus, conjunctival injection, periorbital swelling ENT exam: Present: normal exam, mucous membranes moist Neck exam: Present: normal inspection. Absent: tenderness, meningismus, lymphadenopathy Respiratory exam: Present: normal lung sounds bilaterally. Absent: respiratory distress, wheezes, rales, rhonchi, stridor Cardiovascular Exam: Present: regular rate, normal rhythm, normal heart sounds. Absent: systolic murmur, diastolic murmur, rubs, gallop, clicks GI/Abdominal exam: Present: soft, normal bowel sounds. Absent: distended, tenderness, guarding, rebound, rigid Extremities exam: Present: normal inspection, full ROM, normal capillary refill. Absent: tenderness, pedal edema, joint swelling, calf tenderness Back exam: Present: normal inspection Neurological exam: Present: alert, oriented X3, CN II-XII intact Psychiatric exam: Present: normal affect, normal mood Skin exam: Present: warm, dry, intact, normal color. Absent: rash Course Vital Signs 11/04/23 11/04/23 11/04/23 04:05 05:20 06:56 Temperature 97.3 F L Pulse Rate 101 H 89 90 Respiratory 18 16 16 Rate Blood Pressure 81/58 92/58 101/62 O2 Sat by Pulse 90 L 99 98 Oximetry 11/04/23 11/04/23 11/04/23 07:35 08:36 08:45 Temperature Pulse Rate 80 89 90 Respiratory 20 Rate Blood Pressure 99/64 O2 Sat by Pulse 98 99 Oximetry 11/04/23 11/04/23 13:30 17:10 Temperature Pulse Rate 90 104 H Respiratory 20 18 Rate Blood Pressure 116/62 126/78 O2 Sat by Pulse 98 100 Oximetry - Reevaluation(s) Reevaluation #1: 11/04/23 05:51 Medical records reviewed Reevaluation #2: 11/04/23 05:51 Patient symptoms are unchanged Reevaluation #3: 11/04/23 05:51 Patient informed of results and questions answered Reevaluation #4: Was pt. sent in by a medical professional or institution (, PA, POLYSOMNOGRAPHIC TECHNOLOGIST, urgent care, hospital, or skilled nursing...) When possible be specific @ -no Did you speak to anyone other than the patient for history (EMS, parent, family, police, friend...)? What history was obtained from this source @ -no Did you review nursing and triage notes (agree or disagree)? Why? @ -agree Are old charts reviewed (outside hosp., previous admission, EMS record, old EKG, old radiological studies, urgent care reports/EKG's, skilled nursing records)? Report findings @ -yes Differential Diagnosis (chest pain, altered mental status, abdominal pain women, abdominal pain men, vaginal bleeding, weakness, fever, dyspnea, syncope, headache, dizziness, GI bleed, back pain, seizure, CVA, palpatations, mental health, musculoskeletal)? @ -prior EKG interpreted by me (3pts min.). @ -yes X-rays interpreted by me (1pt min.). @ -yes negative for acute disease CT interpreted by me (1pt min.). @ -no U/S interpreted by me (1pt. min.). @ -no What testing was considered but not performed or refused? (CT, X-rays, U/S, labs)? Why? @ -none What meds were considered but not given or refused? Why? @ -none Did you discuss the management of the patient with other professionals (professionals i.e. , PA, POLYSOMNOGRAPHIC TECHNOLOGIST, lab, RT, psych nurse, oncology social worker, cloth mercerizer back tender, teacher, stream control officer, business case analyst)? Give summary @ -no Was smoking cessation discussed for >3mins.? @ -no Was critical care preformed (if so, how long)? @ -yes31 Were there social determinants of health that impacted care today? How? (Homelessness, low income, unemployed, alcoholism, drug addiction, transportation, low edu. Level, literacy, decrease access to med. care, [facility], rehab)? @ -none Was there de-escalation of care discussed even if they declined (Discuss DNR or withdrawal of care, Hospice)? DNR status @ -no What co-morbidities impacted this encounter? (DM, HTN, Smoking, COPD, CAD, Cancer, CVA, ARF, Chemo, Hep., AIDS, mental health diagnosis, sleep apnea, morbid obesity)? @ -none Was patient admitted / discharged? Hospital course, mention meds given and route, prescriptions, significant lab abnormalities, going to OR and other pertinent info. @ - 73 female transferred for evaluation of likely sepsis, patient has severely elevated white blood cell count and leukocytosis with recent diagnosis of atrial fibrillation with RVR. Patient will be admitted for IV antibiotics Admitted Undiagnosed new problem with uncertain prognosis? @ -no Drug Therapy requiring intensive monitoring for toxicity (Heparin, Nitro, Insulin, Cardizem)? @ -no Were any procedures done? @ -no Diagnosis/symptom? @ -Sepsis, A-fib with RVR, Acute, or Chronic, or Acute on Chronic? @ -Acute Uncomplicated (without systemic symptoms) or Complicated (systemic symptoms)? @ -Complicated Side effects of treatment? @ -no Exacerbation, Progression, or Severe Exacerbation? @ -exacerbation Poses a threat to life or bodily function? How? (Chest pain, USA, NC, pneumonia, PE, COPD, DKA, ARF, appy, cholecystitis, CVA, Diverticulitis, Homicidal, Jeanna cidal, threat to staff... and all critical care pts) @ -yes extremes of age, sepsis with A-fib with RVR Reevaluation #5: Differential Fever: Pneumonia, viral URI, endocarditis, myocarditis, pericarditis, otitis, sinusitis, peritonsillar Abscess, retropharyngeal Abscess, epiglottitis, peritonitis, appendicitis, Cynthia cystitis, diverticulitis, hepatitis, colitis, UTI, PID, TOA, pyelonephritis, prostatitis, epididymitis, meningitis, encephalitis, pulmonary embolism, CVA, thyroid storm, pancreatitis, adrenal crisis, cavernous sinus thrombosis, this is not meant to be an all-inclusive list. Differential Weakness: Hypoglycemia, shock, sepsis, hyponatremia, anemia, infection, NC, ETOH, adverse medicine reaction, overdose, stroke, this is not meant to be an all-inclusive list. - Consultations Consultation #1: Spoke with [facility] who agrees to admit this patient Medical Decision Making - Medical Decision Making 73 female transferred for evaluation of likely sepsis, patient has severely elevated white blood cell count and leukocytosis with recent diagnosis of atrial fibrillation with RVR. Patient will be admitted for IV antibiotics - Lab Data Result diagrams: 11/08/23 09:08 11/08/23 09:08 Lab Results 11/04/23 11/04/23 11/04/23 Range/Units 04:12 04:13 04:13 WBC 30.6 H (3.8-10.6) k/uL RBC 3.35 L (3.80-5.40) m/uL Hgb 9.6 L (11.4-16.0) gm/dL Hct 29.9 L (34.0-46.0) % MCV 89.4 (80.0-100.0) fL MCH 28.7 (25.0-35.0) pg MCHC 32.1 (31.0-37.0) g/dL RDW 15.6 H (11.5-15.5) % Plt Count 457 H (150-450) k/uL MPV 8.2 Neutrophils % (Manual) 53 % Band Neuts % (Manual) 40 % Lymphocytes % (Manual) 4 % Monocytes % (Manual) 2 % Metamyelocytes % 1 % Neutrophils # (Manual) 28.40 H (1.3-7.7) k/uL Lymphocytes # (Manual) 1.22 (1.0-4.8) k/uL Monocytes # (Manual) 0.61 (0-1.0) k/uL Metamyelocytes # (Man) 0.31 H (0) k/uL Nucleated RBCs 0 (0-0) /100 WBC Manual Slide Review Performed Toxic Granulation Present Toxic Vacuolation Present RBC Morphology Normal PT 11.4 (10.0-12.5) sec INR 1.1 (<1.2) APTT 18.9 L (22.0-30.0) sec Sodium (137-145) mmol/L Potassium (3.5-5.1) mmol/L Chloride (98-107) mmol/L Carbon Dioxide (22-30) mmol/L Anion Gap mmol/L BUN (7-17) mg/dL Creatinine (0.52-1.04) mg/dL Est GFR (CKD-EPI)AfAm (>60 ml/min/1.73 sqM) Est GFR (CKD-EPI)NonAf (>60 ml/min/1.73 sqM) Glucose (74-99) mg/dL Plasma Lactic Acid Trevor (0.7-2.0) mmol/L Calcium (8.4-10.2) mg/dL Phosphorus (2.5-4.5) mg/dL Magnesium (1.6-2.3) mg/dL Total Bilirubin (0.2-1.3) mg/dL AST (14-36) U/L ALT (4-34) U/L Alkaline Phosphatase (38-126) U/L Troponin I (0.000-0.034) ng/mL NT-Pro-B Natriuret Pep pg/mL Total Protein (6.3-8.2) g/dL Albumin (3.5-5.0) g/dL Urine Color Urine Appearance (Clear) Urine pH (5.0-8.0) Ur Specific [place] (1.001-1.035) Urine Protein (Negative) Urine Glucose (UA) (Negative) Urine Ketones (Negative) Urine Blood (Negative) Urine Nitrite (Negative) Urine Bilirubin (Negative) Urine Urobilinogen (<2.0) mg/dL Ur Leukocyte Esterase (Negative) Influenza Type A (PCR) Not Detected (Not Detectd) Influenza Type B (PCR) Not Detected (Not Detectd) RSV (PCR) Not Detected (Not Detectd) SARS-CoV-2 (PCR) Not Detected (Not Detectd) 11/04/23 11/04/23 11/04/23 Range/Units 04:13 04:13 04:13 WBC (3.8-10.6) k/uL RBC (3.80-5.40) m/uL Hgb (11.4-16.0) gm/dL Hct (34.0-46.0) % MCV (80.0-100.0) fL MCH (25.0-35.0) pg MCHC (31.0-37.0) g/dL RDW (11.5-15.5) % Plt Count (150-450) k/uL MPV Neutrophils % (Manual) % Band Neuts % (Manual) % Lymphocytes % (Manual) % Monocytes % (Manual) % Metamyelocytes % % Neutrophils # (Manual) (1.3-7.7) k/uL Lymphocytes # (Manual) (1.0-4.8) k/uL Monocytes # (Manual) (0-1.0) k/uL Metamyelocytes # (Man) (0) k/uL Nucleated RBCs (0-0) /100 WBC Manual Slide Review Toxic Granulation Toxic Vacuolation RBC Morphology PT (10.0-12.5) sec INR (<1.2) APTT (22.0-30.0) sec Sodium 128 L (137-145) mmol/L Potassium 3.4 L (3.5-5.1) mmol/L Chloride 98 (98-107) mmol/L Carbon Dioxide 24 (22-30) mmol/L Anion Gap 6 mmol/L BUN 15 (7-17) mg/dL Creatinine 0.70 (0.52-1.04) mg/dL Est GFR (CKD-EPI)AfAm >90 (>60 ml/min/1.73 sqM) Est GFR (CKD-EPI)NonAf 85 (>60 ml/min/1.73 sqM) Glucose 122 H (74-99) mg/dL Plasma Lactic Acid Trevor 1.1 (0.7-2.0) mmol/L Calcium 7.4 L (8.4-10.2) mg/dL Phosphorus 3.1 (2.5-4.5) mg/dL Magnesium 1.6 (1.6-2.3) mg/dL Total Bilirubin 1.1 (0.2-1.3) mg/dL AST 37 H (14-36) U/L ALT 29 (4-34) U/L Alkaline Phosphatase 92 (38-126) U/L Troponin I (0.000-0.034) ng/mL NT-Pro-B Natriuret Pep 4290 pg/mL Total Protein 4.2 L (6.3-8.2) g/dL Albumin 1.9 L (3.5-5.0) g/dL Urine Color Yellow Urine Appearance Clear (Clear) Urine pH 6.0 (5.0-8.0) Ur Specific [place] 1.011 (1.001-1.035) Urine Protein Negative (Negative) Urine Glucose (UA) Negative (Negative) Urine Ketones Trace H (Negative) Urine Blood Negative (Negative) Urine Nitrite Negative (Negative) Urine Bilirubin Negative (Negative) Urine Urobilinogen <2.0 (<2.0) mg/dL Ur Leukocyte Esterase Negative (Negative) Influenza Type A (PCR) (Not Detectd) Influenza Type B (PCR) (Not Detectd) RSV (PCR) (Not Detectd) SARS-CoV-2 (PCR) (Not Detectd) 11/04/23 Range/Units 04:13 WBC (3.8-10.6) k/uL RBC (3.80-5.40) m/uL Hgb (11.4-16.0) gm/dL Hct (34.0-46.0) % MCV (80.0-100.0) fL MCH (25.0-35.0) pg MCHC (31.0-37.0) g/dL RDW (11.5-15.5) % Plt Count (150-450) k/uL MPV Neutrophils % (Manual) % Band Neuts % (Manual) % Lymphocytes % (Manual) % Monocytes % (Manual) % Metamyelocytes % % Neutrophils # (Manual) (1.3-7.7) k/uL Lymphocytes # (Manual) (1.0-4.8) k/uL Monocytes # (Manual) (0-1.0) k/uL Metamyelocytes # (Man) (0) k/uL Nucleated RBCs (0-0) /100 WBC Manual Slide Review Toxic Granulation Toxic Vacuolation RBC Morphology PT (10.0-12.5) sec INR (<1.2) APTT (22.0-30.0) sec Sodium (137-145) mmol/L Potassium (3.5-5.1) mmol/L Chloride (98-107) mmol/L Carbon Dioxide (22-30) mmol/L Anion Gap mmol/L BUN (7-17) mg/dL Creatinine (0.52-1.04) mg/dL Est GFR (CKD-EPI)AfAm (>60 ml/min/1.73 sqM) Est GFR (CKD-EPI)NonAf (>60 ml/min/1.73 sqM) Glucose (74-99) mg/dL Plasma Lactic Acid Trevor (0.7-2.0) mmol/L Calcium (8.4-10.2) mg/dL Phosphorus (2.5-4.5) mg/dL Magnesium (1.6-2.3) mg/dL Total Bilirubin (0.2-1.3) mg/dL AST (14-36) U/L ALT (4-34) U/L Alkaline Phosphatase (38-126) U/L Troponin I 0.024 (0.000-0.034) ng/mL NT-Pro-B Natriuret Pep pg/mL Total Protein (6.3-8.2) g/dL Albumin (3.5-5.0) g/dL Urine Color Urine Appearance (Clear) Urine pH (5.0-8.0) Ur Specific [place] (1.001-1.035) Urine Protein (Negative) Urine Glucose (UA) (Negative) Urine Ketones (Negative) Urine Blood (Negative) Urine Nitrite (Negative) Urine Bilirubin (Negative) Urine Urobilinogen (<2.0) mg/dL Ur Leukocyte Esterase (Negative) Influenza Type A (PCR) (Not Detectd) Influenza Type B (PCR) (Not Detectd) RSV (PCR) (Not Detectd) SARS-CoV-2 (PCR) (Not Detectd) - EKG Data -: EKG Interpreted by Me (EKG is sinus 92 CO 124 QRS 89 QTc 411) - Radiology Data Radiology results: report reviewed (Chest x-ray is negative for acute disease), image reviewed Critical Care Time Critical Care Time: Yes Total Critical Care Time: 31 Disposition Clinical Impression: Weakness, Sepsis, Fever, Hypoxia Disposition: ADMITTED IP TO THIS HOSP Condition: Good Is patient prescribed a controlled substance at d/c from ED?: No Time of Disposition: 05:50
[2023-11-04] MEDS: SODIUM CHLORIDE 0.9% 1,000 ML IV STA (04:18)
[2023-11-04 04:42] LABS: HCT 29.9 % (34.0-46.0); HGB 9.6 gm/dL (11.4-16.0); MCH 28.7 pg (25.0-35.0); MCHC 32.1 g/dL (31.0-37.0); MCV 89.4 fL (80.0-100.0); Mean Platelet Volume 8.2; Platelet Count 457 k/uL (150-450); RBC 3.35 m/uL (3.80-5.40); RDW 15.6 % (11.5-15.5); WBC 30.6 k/uL (3.8-10.6)
[2023-11-04 04:46] LABS: INR 1.1 (<1.2); Prothrombin Time 11.4 sec (10.0-12.5)
[2023-11-04 04:52] LABS: ALT 29 U/L (4-34); AST 37 U/L (14-36); African American GFR (CKD) >90 (>60 ml/min/1.73 sqM); Albumin 1.9 g/dL (3.5-5.0); Alkaline Phosphatase 92 U/L (38-126); Anion Gap 6 mmol/L; Blood Urea Nitrogen 15 mg/dL (7-17); Calcium 7.4 mg/dL (8.4-10.2); Carbon Dioxide 24 mmol/L (22-30); Chloride 98 mmol/L (98-107); Glucose 122 mg/dL (74-99); Magnesium 1.6 mg/dL (1.6-2.3); Non-African American GFR(CKD) 85 (>60 ml/min/1.73 sqM); Phosphorus 3.1 mg/dL (2.5-4.5); Potassium 3.4 mmol/L (3.5-5.1); Sodium 128 mmol/L (137-145); Total Bilirubin 1.1 mg/dL (0.2-1.3); Total Protein 4.2 g/dL (6.3-8.2)
[2023-11-04 04:53] LABS: Partial Thromboplastin Time 18.9 sec (22.0-30.0)
[2023-11-04 05:00] LABS: NT-Pro-B-Type Natriuretic Pept 4290 pg/mL
--- NOTE | 2023-11-04 05:23 | XR ---
EXAMINATION TYPE: XR chest 1V portable DATE OF EXAM: 11/04/2023 COMPARISON: Prior chest x-ray October 29, 2023 HISTORY: Weakness and sepsis. TECHNIQUE: Single frontal view of the chest is obtained. FINDINGS: There is mild chronic parenchymal change without suspicious new focal air space opacity, p leural effusion, or pneumothorax seen. The cardiac silhouette size is stable and within normal limit s. The osseous structures are intact. IMPRESSION: No acute pulmonary infiltrate.
[2023-11-04] MEDS ORDERED: MORPHINE SULFATE 4 MG/ML SYRINGE IV PRN (05:48)
[2023-11-04] MEDS ORDERED: ONDANSETRON 4 MG/2 ML VIAL IVP PRN (05:48)
[2023-11-04] MEDS ORDERED: NALOXONE 0.4 MG/ML 1 ML VIAL IV PRN (05:48)
[2023-11-04] MEDS ORDERED: ALBUTEROL NEBULIZED 2.5 MG/3 ML INHALATION PRN (05:52)
[2023-11-04 05:56] LABS: Band Neutrophils % 40 %; Lymphocytes # (M) 1.22 k/uL (1.0-4.8); Metamyelocytes # (M) 0.31 k/uL (0); Metamyelocytes % 1 %; Monocytes # (M) 0.61 k/uL (0-1.0); Neutrophils % (M) 53 %; Nucleated Red Blood Cells 0 /100 WBC (0-0); RBC Morphology Normal; Total Cells Counted 100; Toxic Granulation Present; Toxic Vacuolation Present
[2023-11-04] MEDS: AZITHROMYCIN 500 MG in SODIUM CHLORIDE 0.9% 250 ML IVPB STA (06:54)
[2023-11-04] MEDS: SODIUM CHLORIDE 0.9% 1,000 ML IV SCH (08:10)
[2023-11-04 08:30] LABS: Appearance,Urine Clear (Clear); Bilirubin,Urine Negative (Negative); Blood,Urine Negative (Negative); Color,Urine Yellow; Glucose,Urine (UA) Negative (Negative); Ketones,Urine Trace (Negative); Leukocyte Esterase,Urine Negative (Negative); Nitrite,Urine Negative (Negative); Protein,Urine Negative (Negative); Specific Gravity,Urine 1.011 (1.001-1.035); Urobilinogen,Urine <2.0 mg/dL (<2.0)
[2023-11-04] MEDS: IPRATROPIUM-ALBUTEROL 3 ML NEB INHALATION STA (08:36)
--- NOTE | 2023-11-04 14:16 | P.HPIM ---
History of Present Illness H&P Date: 11/04/23 History of present illness; patient is 73-year-old lady with past medical history significant for CHF, hypertension, hypothyroidism, Crohn's disease, recent diagnosis of A-fib who presented to [facility] as a transfer for suspicion of sepsis. Patient was only recently discharged after presenting to the hospital for a fall and was diagnosed with A-fib and was discharged home. Patient has been doing well till yesterday evening when she started noticing fevers. There was no complaint of chills. there was no complaint of chest pain or shortness of breath. There was no complaint of palpitations. No complaint of nausea vomiting abdominal pain, during last admission patient did had an episode of rectal bleed which has resolved since then. Patient has been having diarrhea which is at baseline up to 10-12 bowel movements per day.Initial lab work done in the ER showed WBC 30, hemoglobin 9.6, platelet count 457, sodium 128, potassium 3.4, BUN 15, creatinine 0.7 UA negative for any infection Influenza A not detected Influenza B not detected RSV not detected COVID-19 not detected EKG done in the ER showed heart rate of 92, no ST segment elevation or depression seen, no T-wave inversions seen. Chest x-ray done in the ER showed no acute pulmonary infiltrate Patient admitted to internal medicine service REVIEW OF SYSTEMS: CONSTITUTIONAL: As mentioned above HEENT: No recent visual problems or hearing problems. Denied any sore throat. CARDIOVASCULAR: No chest pain, orthopnea, PND, no palpitations, no syncope. PULMONARY: No shortness of breath, no cough, no hemoptysis. GASTROINTESTINAL: As mentioned above NEUROLOGICAL: No headaches, no weakness, no numbness. HEMATOLOGICAL: Denies any bleeding or petechiae. GENITOURINARY: Denies any burning micturition, frequency, or urgency. MUSCULOSKELETAL/RHEUMATOLOGICAL: Denies any joint pain, swelling, or any muscle pain. ENDOCRINE: Denies any polyuria or polydipsia. The rest of the 14-point review of systems is negative. PHYSICAL EXAMINATION: GENERAL: The patient is alert and oriented x3, not in any acute distress. Well developed, well nourished. HEENT: Pupils are round and equally reacting to light. EOMI. No scleral icterus. No conjunctival pallor. Normocephalic, atraumatic. No pharyngeal erythema. No th yromegaly. CARDIOVASCULAR: S1 and S2 present. No murmurs, rubs, or gallops. PULMONARY: Chest is clear to auscultation, no wheezing or crackles. ABDOMEN: Soft, nontender, nondistended, normoactive bowel sounds. No palpable organomegaly. MUSCULOSKELETAL: No joint swelling or deformity. EXTREMITIES: No cyanosis, clubbing, or pedal edema. NEUROLOGICAL: Gross neurological examination did not reveal any focal deficits. SKIN: No rashes. Assessment and plan Fever of unknown origin Leukocytosis COPD History of Crohn's disease Hyponatremia Hypokalemia Paroxysmal atrial fibrillation Hypertension Hypothyroidism Family history of CAD Monitor vital signs Monitor CBC Monitor CMP Continue telemetry monitoring Follow-up on blood culture follow-up urine cultures Stool for C. difficile Ordered stool cultures Continue IV Rocephin and azithromycin Consult ID Labs and medication were reviewed.. Continue same treatment. Continue with symptomatic treatment. Resume home medication. Monitor labs and vitals. DVT and GI prophylaxis. Further recommendations as per clinical course of the patient Dictation was produced using [employer] dictation software. please excuse any grammatical, word or spelling errors. Past Medical History Past Medical History: Asthma, Hyperlipidemia, Hypertension Additional Past Medical History / Comment(s): Colitis, Hypothyroidism History of Any Multi-Drug Resistant Organisms: None Reported Past Surgical History: Bladder Surgery Additional Past Surgical History / Comment(s): Colonoscopy Past Anesthesia/Blood Transfusion Reactions: No Reported Reaction Smoking Status: Former smoker Medications and Allergies Home Medications Medication Instructions Recorded Confirmed Type Albuterol Sulfate [Accuneb] 3 ml INHALATION RT-Q4H PRN 10/28/23 10/28/23 History Albuterol Sulfate [Ventolin HFA] 2 puff INHALATION RT-Q4H PRN 10/28/23 10/28/23 History Ascorbic Acid [Vitamin C] 1,000 mg PO DAILY 10/28/23 10/28/23 History Calcium Citrate/Vitamin D3 1 tab PO DAILY 10/28/23 10/28/23 History [Citracal + D Maximum Caplet] Cholecalciferol [Vitamin D3 (25 25 mcg PO DAILY 10/28/23 10/28/23 History Mcg = 1000 Iu)] EPINEPHrine (Auto Inject) [Epipen] 0.3 mg IM ONCE PRN 10/28/23 10/28/23 History Fluticasone Propionate 110 Mcg 1 puff INHALATION RT-BID 10/28/23 10/28/23 History [Flovent 110 Mcg Inhaler] Furosemide [Lasix] 20 mg PO DAILY 10/28/23 10/28/23 History Garlic 1,000 mg PO DAILY 10/28/23 10/28/23 History Levothyroxine Sodium 25 mcg PO DAILY 10/28/23 10/28/23 History Multivitamins, Thera [Multivitamin 1 tab PO DAILY 10/28/23 10/28/23 History (formulary)] Red Yeast Rice 1,200 mg PO DAILY 10/28/23 10/28/23 History Ubidecarenone [Coenzyme Q10] 100 mg PO DAILY 10/28/23 10/28/23 History Zinc Gluconate [Zinc] 50 mg PO DAILY 10/28/23 10/28/23 History predniSONE 40 mg PO DAILY 10/28/23 10/28/23 History Amiodarone [Cordarone] 400 mg PO BID #180 tab 10/31/23 Rx Balsalazide Disodium 2,250 mg PO TID 30 Days #270 cap 10/31/23 Rx Metoprolol Tartrate [Lopressor] 50 mg PO BID #180 tab 10/31/23 Rx Allergies Allergy/AdvReac Type Severity Reaction Status Date / Time No Known Allergies Allergy Verified 11/04/23 04:10 Physical Exam Vitals: Vital Signs Temp Pulse Resp BP Pulse Ox 11/04/23 08:45 90 11/04/23 08:36 89 99 11/04/23 07:35 80 20 99/64 98 11/04/23 06:56 90 16 101/62 98 11/04/23 05:20 89 16 92/58 99 11/04/23 04:05 97.3 F L 101 H 18 81/58 90 L Intake and Output 11/03/23 11/04/23 11/04/23 22:59 06:59 14:59 Other: Weight 78.471 kg Results CBC & Chem 7: 11/04/23 04:13 11/04/23 04:13 Labs: Abnormal Lab Results - Last 24 Hours (Table) 11/04/23 11/04/23 11/04/23 Range/Units 04:13 04:13 04:13 WBC 30.6 H (3.8-10.6) k/uL RBC 3.35 L (3.80-5.40) m/uL Hgb 9.6 L (11.4-16.0) gm/dL Hct 29.9 L (34.0-46.0) % RDW 15.6 H (11.5-15.5) % Plt Count 457 H (150-450) k/uL Neutrophils # (Manual) 28.40 H (1.3-7.7) k/uL Metamyelocytes # (Man) 0.31 H (0) k/uL APTT 18.9 L (22.0-30.0) sec Sodium (137-145) mmol/L Potassium (3.5-5.1) mmol/L Glucose (74-99) mg/dL Calcium (8.4-10.2) mg/dL AST (14-36) U/L Total Protein (6.3-8.2) g/dL Albumin (3.5-5.0) g/dL Urine Ketones Trace H (Negative) 11/04/23 Range/Units 04:13 WBC (3.8-10.6) k/uL RBC (3.80-5.40) m/uL Hgb (11.4-16.0) gm/dL Hct (34.0-46.0) % RDW (11.5-15.5) % Plt Count (150-450) k/uL Neutrophils # (Manual) (1.3-7.7) k/uL Metamyelocytes # (Man) (0) k/uL APTT (22.0-30.0) sec Sodium 128 L (137-145) mmol/L Potassium 3.4 L (3.5-5.1) mmol/L Glucose 122 H (74-99) mg/dL Calcium 7.4 L (8.4-10.2) mg/dL AST 37 H (14-36) U/L Total Protein 4.2 L (6.3-8.2) g/dL Albumin 1.9 L (3.5-5.0) g/dL Urine Ketones (Negative)
[2023-11-04] MEDS ORDERED: IOPAMIDOL CONTRAST (ORAL USE) VIAL PO PRN (16:04)
[2023-11-04] MEDS: BALSALAZIDE DISODIUM 750 MG CAPSULE PO SCH (17:03)
[2023-11-04] MEDS: CHOLESTYRAMINE (WITH SUGAR) 4 GM PACKET PO SCH (17:04)
--- NOTE | 2023-11-04 17:39 | P.CONS ---
History of Present Illness - Reason for Consult Consult date: 11/04/23 Sepsis Requesting physician: Kalpesh Ahmadi - Chief Complaint Worsening diarrhea x few days - History of Present Illness Patient is a 73-year-old female with a past medical history significant for Crohn's disease, hypertension hyperlipidemia, apparently was recently admitted at this facility and has been diagnosed and treated for new onset atrial fibrillation and was sent on oral amiodarone, patient also evaluated by Dr. Munoz for Crohn's disease on that admission she was given Solu- Medrol and subsequently transition to prednisone patient is now presenting back to the hospital for evaluation of fever apparently the patient did have a fever of 102 F but has been at the bedside and the patient also noted having worsening diarrhea as the patient mentioning multiple episodes of loose stool 10-12 bowel movement per day not very clear about any blood in the stools patient was evaluated outside facility and subsequently transferred to [facility] concerning for sepsis patient on presentation to this facility was afebrile patient was mildly tachycardic but not hypotensive or hypoxic patient did have white count of 30,000 with a left shift creatinine was normal liver isms are normal urine is negative influenza RSV COVID testing was negative chest x-ray was reported negative for any acute pneumonia patient was started on Rocephin and Zithromax infectious disease was consulted for further management of antibiotic therapy Review of Systems Positive point and negatives has been mentioned in the HPI, complete review of systems was performed and all other systems are negative Past Medical History Past Medical History: Asthma, Hyperlipidemia, Hypertension Additional Past Medical History / Comment(s): Colitis, Hypothyroidism History of Any Multi-Drug Resistant Organisms: None Reported Past Surgical History: Bladder Surgery Additional Past Surgical History / Comment(s): Colonoscopy Past Anesthesia/Blood Transfusion Reactions: No Reported Reaction Smoking Status: Former smoker Medications and Allergies Home Medications Medication Instructions Recorded Confirmed Type Albuterol Sulfate [Accuneb] 3 ml INHALATION RT-Q4H PRN 10/28/23 11/04/23 History Albuterol Sulfate [Ventolin HFA] 2 puff INHALATION RT-Q4H PRN 10/28/23 11/04/23 History Ascorbic Acid [Vitamin C] 1,000 mg PO DAILY 10/28/23 11/04/23 History Calcium Citrate/Vitamin D3 1 tab PO DAILY 10/28/23 11/04/23 History [Citracal + D Maximum Caplet] Cholecalciferol [Vitamin D3 (25 25 mcg PO DAILY 10/28/23 11/04/23 History Mcg = 1000 Iu)] EPINEPHrine (Auto Inject) [Epipen] 0.3 mg IM ONCE PRN 10/28/23 11/04/23 History Fluticasone Propionate 110 Mcg 1 puff INHALATION RT-BID 10/28/23 11/04/23 History [Flovent 110 Mcg Inhaler] Furosemide [Lasix] 20 mg PO DAILY 10/28/23 11/04/23 History Garlic 1,000 mg PO DAILY 10/28/23 11/04/23 History Levothyroxine Sodium 25 mcg PO DAILY 10/28/23 11/04/23 History Multivitamins, Thera [Multivitamin 1 tab PO DAILY 10/28/23 11/04/23 History (formulary)] Red Yeast Rice 1,200 mg PO DAILY 10/28/23 11/04/23 History Ubidecarenone [Coenzyme Q10] 100 mg PO DAILY 10/28/23 11/04/23 History Zinc Gluconate [Zinc] 50 mg PO DAILY 10/28/23 11/04/23 History Balsalazide Disodium 2,250 mg PO TID 30 Days #270 cap 10/31/23 11/04/23 Rx Metoprolol Tartrate [Lopressor] 50 mg PO BID #180 tab 10/31/23 11/04/23 Rx Amiodarone [Cordarone] See Taper PO DIRECTED 11/04/23 11/04/23 History Cholestyramine (with Sugar) 4 gm PO TID BETWEEN MEALS #21 11/09/23 Rx [Questran Packet] packet Vancomycin HCl [Vancocin HCl] 500 mg PO QID 14 Days #72 cap 11/09/23 Rx predniSONE 30 mg PO DAILY #0 11/09/23 11/04/23 Rx Allergies Allergy/AdvReac Type Severity Reaction Status Date / Time No Known Allergies Allergy Verified 11/04/23 04:10 Physical Exam Vitals: Vital Signs Temp Pulse Resp BP Pulse Ox 11/04/23 08:45 90 11/04/23 08:36 89 99 11/04/23 07:35 80 20 99/64 98 11/04/23 06:56 90 16 101/62 98 11/04/23 05:20 89 16 92/58 99 11/04/23 04:05 97.3 F L 101 H 18 81/58 90 L Intake and Output 11/03/23 11/04/23 11/04/23 22:59 06:59 14:59 Other: Weight 78.471 kg GENERAL DESCRIPTION: Elderly female lying in bed, no distress. No tachypnea or accessory muscle of respiration use. HEENT: Shows Pallor , no scleral icterus. Oral mucous membrane is dry. No phary ngeal erythema or thrush NECK: Trachea central, no thyromegaly. LUNGS: Unlabored breathing. Clear to auscultation anteriorly. No wheeze or crackle. HEART: S1, S2, regular rate and rhythm. No loud murmur ABDOMEN: Soft, mild distention and tenderness EXTREMITIES: No edema of feet. SKIN: No rash, no masses palpable. NEUROLOGICAL: The patient is awake, alert, oriented x3, mood and affect normal. Results CBC & Chem 7: 11/08/23 09:08 11/08/23 09:08 Labs: Abnormal Lab Results - Last 24 Hours (Table) 11/04/23 11/04/23 11/04/23 Range/Units 04:13 04:13 04:13 WBC 30.6 H (3.8-10.6) k/uL RBC 3.35 L (3.80-5.40) m/uL Hgb 9.6 L (11.4-16.0) gm/dL Hct 29.9 L (34.0-46.0) % RDW 15.6 H (11.5-15.5) % Plt Count 457 H (150-450) k/uL Neutrophils # (Manual) 28.40 H (1.3-7.7) k/uL Metamyelocytes # (Man) 0.31 H (0) k/uL APTT 18.9 L (22.0-30.0) sec Sodium (137-145) mmol/L Potassium (3.5-5.1) mmol/L Glucose (74-99) mg/dL Calcium (8.4-10.2) mg/dL AST (14-36) U/L Total Protein (6.3-8.2) g/dL Albumin (3.5-5.0) g/dL Urine Ketones Trace H (Negative) 11/04/23 Range/Units 04:13 WBC (3.8-10.6) k/uL RBC (3.80-5.40) m/uL Hgb (11.4-16.0) gm/dL Hct (34.0-46.0) % RDW (11.5-15.5) % Plt Count (150-450) k/uL Neutrophils # (Manual) (1.3-7.7) k/uL Metamyelocytes # (Man) (0) k/uL APTT (22.0-30.0) sec Sodium 128 L (137-145) mmol/L Potassium 3.4 L (3.5-5.1) mmol/L Glucose 122 H (74-99) mg/dL Calcium 7.4 L (8.4-10.2) mg/dL AST 37 H (14-36) U/L Total Protein 4.2 L (6.3-8.2) g/dL Albumin 1.9 L (3.5-5.0) g/dL Urine Ketones (Negative) Assessment and Plan (1) C. difficile colitis Status: Acute Code(s): A04.72 - ENTEROCOLITIS D/T CLOSTRIDIUM DIFFICILE, NOT SPCF RECUR SNOMED Code(s): 611356370 (2) Sepsis Status: Acute Code(s): A41.9 - SEPSIS, UNSPECIFIED ORGANISM SNOMED Code(s): 15633358 Plan: 1patient [facility] with sepsis in this patient who did have a fever tachycardia elevated white count patient did have a history of Crohn's disease also having significant diarrhea and the patient was noted to be tender in the left lower quadrant area with a question of possible C. difficile versus exacerbation of her Crohn's colitis. 2we will go ahead and check a CT of abdominal pelvis with oral contrast to better define underlying abdominal area. 3check a stool for C. difficile. 4discontinue Rocephin and Zithromax as no evidence of pneumonia and will start the patient on oral vancomycin while waiting for the workup to be completed at the bedside multiple question concern answered We will follow on clinical condition and cultures to further adjust medication if needed Thank you for this consultation we will follow the patient along with you Dictation was produced using [employer] software. please excuse any grammatical, word or spelling errors. Time with Patient: Greater than 30
--- NOTE | 2023-11-04 18:10 | CT ---
EXAMINATION TYPE: CT abdomen pelvis w con CT DLP: 1171.2 mGycm, Automated exposure control for dose reduction was used. DATE OF EXAM: 11/04/2023 5:54 PM COMPARISON: None. CLINICAL INDICATION:Female, 73 years old with history of fever, diarrhea/colitis; fever, diarrhea/col itis TECHNIQUE: Axial CT of the abdomen and pelvis. Sagittal and coronal reformats were created on a [employer] workstation. Contrast used:100 ml mL of Isovue 300 with IV Contrast, (none if empty) Oral contrast used: with Oral Contrast (none if empty) FINDINGS: LOWER CHEST: Unremarkable ABDOMEN LIVER: Unremarkable GALLBLADDER AND BILE DUCTS: Unremarkable. PANCREAS: Fatty infiltration of the pancreas. SPLEEN: Unremarkable. ADRENAL GLANDS: Unremarkable. KIDNEYS AND URETERS: No evidence of hydronephrosis or renal calculus. The ureters are unremarkable. The right kidney is mildly atrophic. PELVIS BLADDER: Unremarkable REPRODUCTIVE: Unremarkable. ABDOMEN & PELVIS STOMACH AND BOWEL: Stomach and duodenum are unremarkable. There is diffuse colonic wall thickening wi th surrounding inflammatory changes, most pronounced involving the ascending colon and cecum. No evid ence of abscess formation. There is mild mural hyperenhancement appreciated. No evidence of bowel obs truction. PERITONEUM/RETROPERITONEUM: Trace intra-abdominal ascites. VASCULATURE: Mild atherosclerotic calcifications are present throughout the abdominal aorta and its b ranches. No evidence of aortic aneurysm. MUSCULOSKELETAL: No acute osseous abnormalities. Moderate disc degeneration changes are present throu ghout the thoracolumbar spine. LYMPH NODES: No gross evidence for lymphadenopathy. SOFT TISSUE/ABDOMINAL WALL: Unremarkable IMPRESSION: 1. Findings consistent with pancolitis, most pronounced involving the ascending colon and cecum. 2. Trace intra-abdominal ascites.
[2023-11-04] MEDS: VANCOMYCIN 125 MG CAPSULE PO SCH (22:45)
[2023-11-05] MEDS ORDERED: ZINC OXIDE PASTE (Z-GUARD) 1 APPLIC TOPICAL PRN (03:53)
[2023-11-05] MEDS ORDERED: ALBUTEROL HFA INHALER INHALATION PRN (08:35)
[2023-11-05] MEDS ORDERED: ALBUTEROL SULFATE 0.63 MG/3 ML INHALATION PRN (08:35)
[2023-11-05] MEDS ORDERED: METOPROLOL TARTRATE 25 MG TAB PO SCH (09:00)
[2023-11-05] MEDS ORDERED: AZITHROMYCIN 500 MG in SODIUM CHLORIDE 0.9% 250 ML IVPB SCH (09:00)
[2023-11-05] MEDS ORDERED: METOPROLOL TARTRATE 50 MG TAB PO SCH (09:00)
[2023-11-05] MEDS: AMIODARONE 200 MG TAB PO SCH (09:33)
[2023-11-05] MEDS: ZINC SULFATE 220 MG CAP PO SCH (09:34)
[2023-11-05] MEDS: MULTIVITAMINS, THERA 1 EACH TAB PO SCH (09:34)
[2023-11-05] MEDS: ASCORBIC ACID 500 MG TAB PO SCH (09:34)
[2023-11-05] MEDS: CHOLECALCIFEROL 25 MCG (1000 IU) TABLET PO SCH (09:34)
[2023-11-05] MEDS: METOPROLOL TARTRATE 50 MG TAB PO SCH (09:34)
[2023-11-05] MEDS: LEVOTHYROXINE 25 MCG TAB PO SCH (09:34)
[2023-11-05] MEDS: CALCIUM CARB-VIT D 500 MG-5 MCG TAB PO SCH (09:36)
[2023-11-05] MEDS: predniSONE 20 MG TAB PO SCH (09:36)
[2023-11-05] MEDS: FUROSEMIDE 20 MG TAB PO SCH (09:36)
[2023-11-05 10:27] LABS: HCT 33.5 % (34.0-46.0); HGB 10.2 gm/dL (11.4-16.0); Hypochromasia Moderate; MCH 27.9 pg (25.0-35.0); MCHC 30.4 g/dL (31.0-37.0); MCV 91.7 fL (80.0-100.0); Mean Platelet Volume 7.3; Platelet Count 502 k/uL (150-450); RBC 3.65 m/uL (3.80-5.40); RDW 15.7 % (11.5-15.5); WBC 31.8 k/uL (3.8-10.6)
[2023-11-05 10:43] LABS: ALT 22 U/L (4-34); AST 26 U/L (14-36); African American GFR (CKD) >90 (>60 ml/min/1.73 sqM); Albumin 1.7 g/dL (3.5-5.0); Alkaline Phosphatase 115 U/L (38-126); Anion Gap 4 mmol/L; Blood Urea Nitrogen 9 mg/dL (7-17); Calcium 7.2 mg/dL (8.4-10.2); Carbon Dioxide 25 mmol/L (22-30); Chloride 96 mmol/L (98-107); Glucose 101 mg/dL (74-99); Magnesium 1.7 mg/dL (1.6-2.3); Non-African American GFR(CKD) >90 (>60 ml/min/1.73 sqM); Phosphorus 2.4 mg/dL (2.5-4.5); Potassium 3.2 mmol/L (3.5-5.1); Sodium 125 mmol/L (137-145); Total Bilirubin 0.5 mg/dL (0.2-1.3); Total Protein 3.9 g/dL (6.3-8.2)
[2023-11-05 11:15] LABS: Band Neutrophils % 10 %; Lymphocytes # (M) 0.95 k/uL (1.0-4.8); Metamyelocytes # (M) 0.32 k/uL (0); Metamyelocytes % 1 %; Monocytes # (M) 0.95 k/uL (0-1.0); Myelocytes # (M) 0.64 k/uL (0); Myelocytes % 2 %; Neutrophils % (M) 83 %; Nucleated Red Blood Cells 0 /100 WBC (0-0); Total Cells Counted 200
[2023-11-05 11:16] LABS: Toxic Granulation Present
--- NOTE | 2023-11-05 13:12 | P.PN ---
Subjective Progress Note Date: 11/05/23 patient is 73-year-old lady with past medical history significant for CHF, hypertension, hypothyroidism, Crohn's disease, recent diagnosis of A-fib who presented to [facility] as a transfer for suspicion of sepsis. Patient was only recently discharged after presenting to the hospital for a fall and was diagnosed with A-fib and was discharged home. Patient has been doing well till yesterday evening when she started noticing fevers. There was no complaint of chills. there was no complaint of chest pain or shortness of breath. There was no complaint of palpitations. No complaint of nausea vomiting abdominal pain, during last admission patient did had an episode of rectal bleed which has resolved since then. Patient has been having diarrhea which is at baseline up to 10-12 bowel movements per day.Initial lab work done in the ER showed WBC 30, hemoglobin 9.6, platelet count 457, sodium 128, potassium 3.4, BUN 15, creatinine 0.7 UA negative for any infection Influenza A not detected Influenza B not detected RSV not detected COVID-19 not detected EKG done in the ER showed heart rate of 92, no ST segment elevation or depression seen, no T-wave inversions seen. Chest x-ray done in the ER showed no acute pulmonary infiltrate Patient admitted to internal medicine service 11/04. Patient seen and examined. CT abdomen pelvis done showed finding consistent with pancolitis most pronounced involving the ascending colon and cecum. Stool for C. difficile positive. Diarrhea has improved. Denies abdominal pain REVIEW OF SYSTEMS: CONSTITUTIONAL: No fever, no malaise,. CARDIOVASCULAR: No chest pain, no palpitations, no syncope. PULMONARY: No shortness of breath, no cough, GASTROINTESTINAL: As mentioned above NEUROLOGICAL: No headaches, no weakness, PHYSICAL EXAMINATION: GENERAL: The patient is alert and oriented x3, not in any acute distress. Well developed, well nourished. HEENT: Pupils are round and equally reacting to light. EOMI. No scleral icterus. No conjunctival pallor. Normocephalic, atraumatic. No pharyngeal erythema. No thyromegaly. CARDIOVASCULAR: S1 and S2 present. No murmurs, rubs, or gallops. PULMONARY: Chest is clear to auscultation, no wheezing or crackles. ABDOMEN: Soft, nontender, nondistended, normoactive bowel sounds. No palpable organomegaly. MUSCULOSKELETAL: No joint swelling or deformity. EXTREMITIES: No cyanosis, clubbing, or pedal edema. NEUROLOGICAL: Gross neurological examination did not reveal any focal deficits. SKIN: No rashes. Assessment and plan Active colitis Leukocytosis COPD History of Crohn's disease Hyponatremia Hypokalemia Paroxysmal atrial fibrillation Hypertension Hypothyroidism Family history of CAD Monitor vital signs Monitor CBC Monitor CMP Continue telemetry monitoring Follow-up on blood culture follow-up urine cultures Stool for C. difficile positive Continue oral vancomycin ID following Labs and medication were reviewed.. Continue same treatment. Continue with symptomatic treatment. Resume home medication. Monitor labs and vitals. DVT and GI prophylaxis. Further recommendations as per clinical course of the patient Dictation was produced using [email or web address] dictation software. please excuse any grammatical, word or spelling errors. Objective - Vital Signs Vital signs: Vital Signs Temp 98.4 F 11/05/23 04:00 Pulse 105 H 11/05/23 04:00 Resp 18 11/05/23 04:00 BP 132/79 11/05/23 04:00 Pulse Ox 91 L 11/05/23 04:00 FiO2 Intake & Output 11/04/23 11/05/23 11/05/23 18:59 06:59 18:59 Intake Total 240 Output Total 402 Balance -402 240 Weight 78.471 kg Intake: Oral 240 Output: Urine 400 Stool 2 Other: Voiding Method Bedpan # Voids 2 # Bowel Movements 2 - Labs CBC & Chem 7: 11/05/23 09:49 11/05/23 09:49
[2023-11-05] MEDS: ACETAMINOPHEN TAB 325 MG TAB PO PRN (17:17)
--- NOTE | 2023-11-05 18:29 | P.PN ---
Subjective Progress Note Date: 11/05/23 Principal diagnosis: Reason for follow-up is C. difficile colitis Patient is a 73-year-old female with a past medical history significant for Crohn's disease, hypertension hyperlipidemia, apparently was recently admitted at this facility and has been diagnosed and treated for new onset atrial fibrillation now present to the hospital with worsening diarrhea elevated white count, stool for significantly positive. On today's visit that is 11/05/2023,the patient denies any fever or any chills, patient is breathing comfortably on room air, the patient denies chest pain shortness of breath and no significant cough, patient abdominal pain has decreased intensity no nausea vomiting and diarrhea has slowed down. Patient white count is 31.8, creatinine 0.59 Objective - Vital Signs Vital signs: Vital Signs Temp 98.3 F 11/05/23 08:00 Pulse 165 H 11/05/23 08:00 Resp 18 11/05/23 08:00 BP 111/80 11/05/23 08:00 Pulse Ox 95 11/05/23 08:00 FiO2 Intake & Output 11/04/23 11/05/23 11/05/23 18:59 06:59 18:59 Intake Total 240 Output Total 402 1 Balance -402 239 Weight 78.471 kg Intake: Oral 240 Output: Urine 400 Stool 2 1 Other: Voiding Method Bedpan # Voids 2 # Bowel Movements 2 - Exam GENERAL DESCRIPTION: An elderly female lying in bed in no distress RESPIRATORY SYSTEM: Unlabored breathing , decreased breath sounds at bases HEART: S1 S2 regular rate and rhythm , ABDOMEN: Soft , no tenderness EXTREMITIES: No edema feet - Labs CBC & Chem 7: 11/05/23 09:49 11/05/23 09:49 Labs: Abnormal Lab Results - Last 24 Hours (Table) 11/05/23 11/05/23 Range/Units 09:49 09:49 WBC 31.8 H (3.8-10.6) k/uL RBC 3.65 L (3.80-5.40) m/uL Hgb 10.2 L (11.4-16.0) gm/dL Hct 33.5 L (34.0-46.0) % MCHC 30.4 L (31.0-37.0) g/dL RDW 15.7 H (11.5-15.5) % Plt Count 502 H (150-450) k/uL Neutrophils # (Manual) 29.50 H (1.3-7.7) k/uL Lymphocytes # (Manual) 0.95 L (1.0-4.8) k/uL Metamyelocytes # (Man) 0.32 H (0) k/uL Myelocytes # (Manual) 0.64 H (0) k/uL Sodium 125 L (137-145) mmol/L Potassium 3.2 L (3.5-5.1) mmol/L Chloride 96 L (98-107) mmol/L Glucose 101 H (74-99) mg/dL Calcium 7.2 L (8.4-10.2) mg/dL Phosphorus 2.4 L (2.5-4.5) mg/dL Total Protein 3.9 L (6.3-8.2) g/dL Albumin 1.7 L (3.5-5.0) g/dL Microbiology - Last 24 Hours (Table) 11/04/23 04:30 Blood Culture - Preliminary Blood Assessment and Plan (1) C. difficile colitis Current Visit: Yes Status: Acute Code(s): A04.72 - ENTEROCOLITIS D/T CLOSTRIDIUM DIFFICILE, NOT SPCF RECUR SNOMED Code(s): 197054929 (2) Leukocytosis Current Visit: Yes Status: Acute Code(s): D72.829 - ELEVATED WHITE BLOOD CELL COUNT, UNSPECIFIED SNOMED Code(s): 993040160 Plan: 1patient [facility] with sepsis in this patient who did have a fever tachycardia elevated white count patient did have a history of Crohn's disease also having significant diarrhea and the patient was noted to be tender in the left lower quadrant area with a question of possible C. difficile versus exacerbation of her Crohn's colitis. 2 CT of abdominal pelvis with oral contrast is suggestive of pancolitis and the patient stool for C. difficile came back positive. 4keeping in mind pancolitis we will increase the dose of vancomycin to 500 g p.o. every 6 hours, avoid antimotility agent at the bedside question answered Dictation was produced using [employer] dictation software. please excuse any grammatical, word or spelling errors. Time with Patient: Less than 30
[2023-11-05] MEDS: FLUTICASONE 110 MCG INHALER INHALATION SCH (20:42)
[2023-11-05] MEDS: VANCOMYCIN 125 MG CAPSULE PO SCH (22:15)
--- NOTE | 2023-11-06 14:11 | P.PN ---
Subjective Progress Note Date: 11/06/23 patient is 73-year-old lady with past medical history significant for CHF, hypertension, hypothyroidism, Crohn's disease, recent diagnosis of A-fib who presented to [facility] as a transfer for suspicion of sepsis. Patient was only recently discharged after presenting to the hospital for a fall and was diagnosed with A-fib and was discharged home. Patient has been doing well till yesterday evening when she started noticing fevers. There was no complaint of chills. there was no complaint of chest pain or shortness of breath. There was no complaint of palpitations. No complaint of nausea vomiting abdominal pain, during last admission patient did had an episode of rectal bleed which has resolved since then. Patient has been having diarrhea which is at baseline up to 10-12 bowel movements per day.Initial lab work done in the ER showed WBC 30, hemoglobin 9.6, platelet count 457, sodium 128, potassium 3.4, BUN 15, creatinine 0.7 UA negative for any infection Influenza A not detected Influenza B not detected RSV not detected COVID-19 not detected EKG done in the ER showed heart rate of 92, no ST segment elevation or depression seen, no T-wave inversions seen. Chest x-ray done in the ER showed no acute pulmonary infiltrate Patient admitted to internal medicine service 11/04. Patient seen and examined. CT abdomen pelvis done showed finding consistent with pancolitis most pronounced involving the ascending colon and cecum. Stool for C. difficile positive. Diarrhea has improved. Denies abdominal pain 11/05. Patient seen and examined. Diarrhea is improving. Patient still complaining of lethargy and weakness. PT and OT recommend rehab REVIEW OF SYSTEMS: CONSTITUTIONAL: No fever, no malaise,. CARDIOVASCULAR: No chest pain, no palpitations, no syncope. PULMONARY: No shortness of breath, no cough, GASTROINTESTINAL: As mentioned above NEUROLOGICAL: No headaches, no weakness, PHYSICAL EXAMINATION: GENERAL: The patient is alert and oriented x3, not in any acute distress. Well developed, well nourished. HEENT: Pupils are round and equally reacting to light. EOMI. No scleral icterus. No conjunctival pallor. Normocephalic, atraumatic. No pharyngeal erythema. No thyromegaly. CARDIOVASCULAR: S1 and S2 present. No murmurs, rubs, or gallops. PULMONARY: Chest is clear to auscultation, no wheezing or crackles. ABDOMEN: Soft, nontender, nondistended, normoactive bowel sounds. No palpable organomegaly. MUSCULOSKELETAL: No joint swelling or deformity. EXTREMITIES: No cyanosis, clubbing, or pedal edema. NEUROLOGICAL: Gross neurological examination did not reveal any focal deficits. SKIN: No rashes. Assessment and plan Active colitis Leukocytosis COPD History of Crohn's disease Hyponatremia Hypokalemia Paroxysmal atrial fibrillation Hypertension Hypothyroidism Family history of CAD Monitor vital signs Monitor CBC Monitor CMP Continue telemetry monitoring Follow-up on blood culture follow-up urine cultures Stool for C. difficile positive Continue oral vancomycin ID following PT and OT recommend rehab Labs and medication were reviewed.. Continue same treatment. Continue with symptomatic treatment. Resume home medication. Monitor labs and vitals. DVT and GI prophylaxis. Further recommendations as per clinical course of the pat ient Dictation was produced using [employer] dictation software. please excuse any grammatical, word or spelling errors. Objective - Vital Signs Vital signs: Vital Signs Temp 98 F 11/06/23 12:00 Pulse 66 11/06/23 12:00 Resp 18 11/06/23 12:00 BP 118/74 11/06/23 12:00 Pulse Ox 95 11/06/23 12:00 FiO2 Intake & Output 11/05/23 11/06/23 11/06/23 18:59 06:59 18:59 Intake Total 476 118 Output Total 2 2 1 Balance 474 -2 117 Intake: Oral 476 118 Output: Stool 2 2 1 Other: Voiding Method Bedpan Toilet # Voids 1 # Bowel Movements 1 - Labs CBC & Chem 7: 11/05/23 09:49 11/05/23 09:49 Labs: Microbiology - Last 24 Hours (Table) 11/04/23 04:30 Blood Culture - Preliminary Blood
--- NOTE | 2023-11-06 15:04 | P.PN ---
Subjective Progress Note Date: 11/06/23 Principal diagnosis: Reason for follow-up is C. difficile colitis Patient is a 73-year-old female with a past medical history significant for Crohn's disease, hypertension hyperlipidemia, apparently was recently admitted at this facility and has been diagnosed and treated for new onset atrial fibrillation now present to the hospital with worsening diarrhea elevated white count, stool for significantly positive. On today's visit that is 11/06/2023,the patient remains to be afebrile, patient is on room air not requiring supplemental oxygen and denies any shortness of breath no chest pain or cough.Patient denies having any nausea or vomiting, no abdominal pain and no diarrhea has been reported diarrhea has slowed down. No new labs has been repeated today blood culture negative so far Objective - Vital Signs Vital signs: Vital Signs Temp 98 F 11/06/23 12:00 Pulse 66 11/06/23 12:00 Resp 18 11/06/23 12:00 BP 118/74 11/06/23 12:00 Pulse Ox 95 11/06/23 12:00 FiO2 Intake & Output 11/05/23 11/06/23 11/06/23 18:59 06:59 18:59 Intake Total 476 118 Output Total 2 2 1 Balance 474 -2 117 Intake: Oral 476 118 Output: Stool 2 2 1 Other: Voiding Method Bedpan Toilet # Voids 1 # Bowel Movements 1 - Exam GENERAL DESCRIPTION: An elderly female lying in bed in no distress RESPIRATORY SYSTEM: Unlabored breathing , decreased breath sounds at bases HEART: S1 S2 regular rate and rhythm , ABDOMEN: Soft , no tenderness EXTREMITIES: No edema feet - Labs CBC & Chem 7: 11/05/23 09:49 11/05/23 09:49 Labs: Microbiology - Last 24 Hours (Table) 11/04/23 04:30 Blood Culture - Preliminary Blood Assessment and Plan (1) C. difficile colitis Current Visit: Yes Status: Acute Code(s): A04.72 - ENTEROCOLITIS D/T CLOSTRIDIUM DIFFICILE, NOT SPCF RECUR SNOMED Code(s): 879758281 (2) Leukocytosis Current Visit: Yes Status: Acute Code(s): D72.829 - ELEVATED WHITE BLOOD CELL COUNT, UNSPECIFIED SNOMED Code(s): 716806532 Plan: 1patient presented hospital with sepsis in this patient who did have a fever tachycardia elevated white count patient did have a history of Crohn's disease also having significant diarrhea and the patient was noted to be tender in the left lower quadrant area with a question of possible C. difficile versus exacerbation of her Crohn's colitis. 2 CT of abdominal pelvis with oral contrast is suggestive of pancolitis and the patient stool for C. difficile came back positive. 4patient to continue with vancomycin to 500 g p.o. every 6 hours, avoid antimotility agent we will order CBC with a.m. lab to make sure the white count is trending down at the bedside question answered Dictation was produced using [employer] dictation software. please excuse any grammatical, word or spelling errors. Time with Patient: Less than 30
[2023-11-06] MEDS: IBUPROFEN 400 MG TAB PO PRN (23:57)
[2023-11-07 10:15] LABS: HGB 10.4 gm/dL (11.4-16.0); Hypochromasia Marked; MCH 28.1 pg (25.0-35.0); MCHC 29.8 g/dL (31.0-37.0); MCV 94.2 fL (80.0-100.0); Mean Platelet Volume 8.3; Platelet Count 457 k/uL (150-450); RBC 3.72 m/uL (3.80-5.40); RDW 15.4 % (11.5-15.5)
[2023-11-07 10:28] LABS: ALT 24 U/L (4-34); AST 26 U/L (14-36); African American GFR (CKD) >90 (>60 ml/min/1.73 sqM); Albumin 2.1 g/dL (3.5-5.0); Alkaline Phosphatase 125 U/L (38-126); Anion Gap 8 mmol/L; Blood Urea Nitrogen 10 mg/dL (7-17); Calcium 7.7 mg/dL (8.4-10.2); Carbon Dioxide 22 mmol/L (22-30); Chloride 99 mmol/L (98-107); Glucose 191 mg/dL (74-99); Non-African American GFR(CKD) 87 (>60 ml/min/1.73 sqM); Potassium 3.8 mmol/L (3.5-5.1); Sodium 129 mmol/L (137-145); Total Bilirubin 0.4 mg/dL (0.2-1.3); Total Protein 4.5 g/dL (6.3-8.2)
[2023-11-07 12:36] LABS: Band Neutrophils % 3 %; Eosinophils # (M) 0.36 k/uL (0-0.7); Lymphocytes # (M) 0.72 k/uL (1.0-4.8); Metamyelocytes # (M) 0.72 k/uL (0); Metamyelocytes % 2 %; Monocytes # (M) 1.44 k/uL (0-1.0); Myelocytes # (M) 0.36 k/uL (0); Myelocytes % 1 %; Neutrophils % (M) 88 %; Nucleated Red Blood Cells 0 /100 WBC (0-0); Total Cells Counted 200
[2023-11-07 12:39] LABS: Poikilocytosis (M) Present
--- NOTE | 2023-11-07 12:58 | P.PN ---
Subjective Progress Note Date: 11/07/23 patient is 73-year-old lady with past medical history significant for CHF, hypertension, hypothyroidism, Crohn's disease, recent diagnosis of A-fib who presented to [facility] as a transfer for suspicion of sepsis. Patient was only recently discharged after presenting to the hospital for a fall and was diagnosed with A-fib and was discharged home. Patient has been doing well till yesterday evening when she started noticing fevers. There was no complaint of chills. there was no complaint of chest pain or shortness of breath. There was no complaint of palpitations. No complaint of nausea vomiting abdominal pain, during last admission patient did had an episode of rectal bleed which has resolved since then. Patient has been having diarrhea which is at baseline up to 10-12 bowel movements per day.Initial lab work done in the ER showed WBC 30, hemoglobin 9.6, platelet count 457, sodium 128, potassium 3.4, BUN 15, creatinine 0.7 UA negative for any infection Influenza A not detected Influenza B not detected RSV not detected COVID-19 not detected EKG done in the ER showed heart rate of 92, no ST segment elevation or depression seen, no T-wave inversions seen. Chest x-ray done in the ER showed no acute pulmonary infiltrate Patient admitted to internal medicine service 11/04. Patient seen and examined. CT abdomen pelvis done showed finding consistent with pancolitis most pronounced involving the ascending colon and cecum. Stool for C. difficile positive. Diarrhea has improved. Denies abdominal pain 11/05. Patient seen and examined. Diarrhea is improving. Patient still complaining of lethargy and weakness. PT and OT recommend rehab 11/06. Patient seen and examined. Patient still has a leukocytosis which could be secondary to her being on steroids. Diarrhea is improving every day, currently she states she is having up to 3-4 bowel movements REVIEW OF SYSTEMS: CONSTITUTIONAL: No fever, no malaise,. CARDIOVASCULAR: No chest pain, no palpitations, no syncope. PULMONARY: No shortness of breath, no cough, GASTROINTESTINAL: As mentioned above NEUROLOGICAL: No headaches, no weakness, PHYSICAL EXAMINATION: GENERAL: The patient is alert and oriented x3, not in any acute distress. Well developed, well nourished. HEENT: Pupils are round and equally reacting to light. EOMI. No scleral icterus. No conjunctival pallor. Normocephalic, atraumatic. No pharyngeal erythema. No thyromegaly. CARDIOVASCULAR: S1 and S2 present. No murmurs, rubs, or gallops. PULMONARY: Chest is clear to auscultation, no wheezing or crackles. ABDOMEN: Soft, nontender, nondistended, normoactive bowel sounds. No palpable organomegaly. MUSCULOSKELETAL: No joint swelling or deformity. EXTREMITIES: No cyanosis, clubbing, or pedal edema. NEUROLOGICAL: Gross neurological examination did not reveal any focal deficits. SKIN: No rashes. Assessment and plan Active colitis Leukocytosis COPD History of Crohn's disease Hyponatremia Hypokalemia Paroxysmal atrial fibrillation Hypertension Hypothyroidism Family history of CAD Monitor vital signs Monitor CBC Monitor CMP Continue telemetry monitoring Follow-up on blood culture follow-up urine cultures Stool for C. difficile positive Continue oral vancomycin Decrease prednisone to 30 mg daily ID following PT and OT recommend rehab Labs and medication were reviewed.. Continue same treatment. Continue with symptomatic treatment. Resume home medication. Monitor labs and vitals. DVT and GI prophylaxis. Further recommendations as per clinical course of the patient Dictation was produced using [employer] dictation software. please excuse any grammatical, word or spelling errors. Objective - Vital Signs Vital signs: Vital Signs Temp 97.5 F L 11/07/23 03:14 Pulse 64 11/07/23 03:14 Resp 16 11/07/23 03:14 BP 128/76 11/07/23 03:14 Pulse Ox 92 L 11/07/23 09:54 FiO2 Intake & Output 11/06/23 11/07/23 11/07/23 18:59 06:59 18:59 Intake Total 596 1228 Output Total 1 Balance 595 1228 Intake: Intake, IV Titration 910 Amount Sodium Chloride 0.9% 1, 910 000 ml @ 130 mls/hr IV . Q7H42M [facility] Rx#:[id number] Oral 596 318 Output: Stool 1 Other: Voiding Method Toilet Toilet # Voids 3 # Bowel Movements 1 - Labs CBC & Chem 7: 11/07/23 09:27 11/07/23 09:27 Labs: Microbiology - Last 24 Hours (Table) 11/04/23 18:52 Stool Culture - Preliminary Stool 11/04/23 04:30 Blood Culture - Preliminary Blood
--- NOTE | 2023-11-07 17:45 | P.PN ---
Subjective Progress Note Date: 11/07/23 Principal diagnosis: Reason for follow-up is C. difficile colitis Patient is a 73-year-old female with a past medical history significant for Crohn's disease, hypertension hyperlipidemia, apparently was recently admitted at this facility and has been diagnosed and treated for new onset atrial fibrillation now present to the hospital with worsening diarrhea elevated white count, stool for significantly positive. On today's visit that is 11/07/2023, the patient continues to be afebrile, the patient is on room air and breathing comfortably, the Pt denies having any chest pain or cough, the patient denies having any abdominal pain no vomiting and diarrhea is slowly decreasing. The patient white count is 36,000 creatinine 0.66 Objective - Vital Signs Vital signs: Vital Signs Temp 97.4 F L 11/07/23 08:00 Pulse 78 11/07/23 08:00 Resp 16 11/07/23 08:00 BP 94/61 11/07/23 08:00 Pulse Ox 92 L 11/07/23 09:54 FiO2 Intake & Output 11/06/23 11/07/23 11/07/23 18:59 06:59 18:59 Intake Total 596 1228 496 Output Total 1 Balance 595 1228 496 Intake: Intake, IV Titration 910 260 Amount Sodium Chloride 0.9% 1, 910 260 000 ml @ 130 mls/hr IV . Q7H42M [facility] Rx#:[id number] Oral 596 318 236 Output: Stool 1 Other: Voiding Method Toilet Toilet Toilet # Voids 3 # Bowel Movements 1 - Exam GENERAL DESCRIPTION: An elderly female lying in bed in no distress RESPIRATORY SYSTEM: Unlabored breathing , decreased breath sounds at bases HEART: S1 S2 regular rate and rhythm , ABDOMEN: Soft , no tenderness EXTREMITIES: No edema feet - Labs CBC & Chem 7: 11/07/23 09:27 11/07/23 09:27 Labs: Abnormal Lab Results - Last 24 Hours (Table) 11/07/23 11/07/23 Range/Units : 09: WBC 36.0 H (3.8-10.6) k/uL RBC 3.72 L (3.80-5.40) m/uL Hgb 10.4 L (11.4-16.0) gm/dL MCHC 29.8 L (31.0-37.0) g/dL Plt Count 457 H (150-450) k/uL Neutrophils # (Manual) 32.70 H (1.3-7.7) k/uL Lymphocytes # (Manual) 0.72 L (1.0-4.8) k/uL Monocytes # (Manual) 1.44 H (0-1.0) k/uL Metamyelocytes # (Man) 0.72 H (0) k/uL Myelocytes # (Manual) 0.36 H (0) k/uL Sodium 129 L (137-145) mmol/L Glucose 191 H (74-99) mg/dL Calcium 7.7 L (8.4-10.2) mg/dL Total Protein 4.5 L (6.3-8.2) g/dL Albumin 2.1 L (3.5-5.0) g/dL Microbiology - Last 24 Hours (Table) 11/04/23 04:30 Blood Culture - Preliminary Blood 11/04/23 18:52 Stool Culture - Preliminary Stool Assessment and Plan (1) C. difficile colitis Current Visit: Yes Status: Acute Code(s): A04.72 - ENTEROCOLITIS D/T CLOSTRIDIUM DIFFICILE, NOT SPCF RECUR SNOMED Code(s): 311906915 (2) Leukocytosis Current Visit: Yes Status: Acute Code(s): D72.829 - ELEVATED WHITE BLOOD CELL COUNT, UNSPECIFIED SNOMED Code(s): 337007897 Plan: 1patient presented hospital with sepsis in this patient who did have a fever tachycardia elevated white count patient did have a history of Crohn's disease also having significant diarrhea and the patient was noted to be tender in the left lower quadrant area with a question of possible C. difficile versus exace rbation of her Crohn's colitis. 2 CT of abdominal pelvis with oral contrast is suggestive of pancolitis and the patient stool for C. difficile came back positive. 4patient did have some clinical improvement as the patient diarrhea slowing down worsening vitamins more likely steroid related and discussed with the admitting team for possible cutting dose of steroids for now continue with the oral vancomycin encouraged to increase her probiotic and yogurt intake Dictation was produced using [employer] dictation software. please excuse any grammatical, word or spelling errors. Time with Patient: Less than 30
[2023-11-08] MEDS: predniSONE 10 MG TAB PO SCH (09:50)
[2023-11-08] MEDS: AMIODARONE 200 MG TAB PO SCH (09:51)
[2023-11-08 10:41] LABS: ALT 24 U/L (4-34); AST 33 U/L (14-36); African American GFR (CKD) >90 (>60 ml/min/1.73 sqM); Alkaline Phosphatase 132 U/L (38-126); Anion Gap 5 mmol/L; Basophils # (A) 0.3 k/uL (0-0.2); Basophils % (A) 1 %; Blood Urea Nitrogen 10 mg/dL (7-17); Calcium 7.6 mg/dL (8.4-10.2); Carbon Dioxide 25 mmol/L (22-30); Chloride 99 mmol/L (98-107); Eosinophils % (A) 0 %; Glucose 105 mg/dL (74-99); HCT 30.4 % (34.0-46.0); HGB 9.3 gm/dL (11.4-16.0); Hypochromasia Moderate; Lymphocytes # (A) 0.6 k/uL (1.0-4.8); Lymphocytes % (A) 2 %; MCH 27.9 pg (25.0-35.0); MCHC 30.6 g/dL (31.0-37.0); MCV 91.2 fL (80.0-100.0); Mean Platelet Volume 8.6; Monocytes # (A) 0.7 k/uL (0-1.0); Monocytes % (A) 3 %; Neutrophils # (A) 25.3 k/uL (1.3-7.7); Neutrophils % (A) 94 %; Non-African American GFR(CKD) >90 (>60 ml/min/1.73 sqM); Platelet Count 438 k/uL (150-450); RBC 3.33 m/uL (3.80-5.40); RDW 15.7 % (11.5-15.5); Sodium 129 mmol/L (137-145); Total Bilirubin 0.4 mg/dL (0.2-1.3); Total Protein 4.3 g/dL (6.3-8.2)
[2023-11-08] MEDS: POTASSIUM CHLORIDE ER 20 MEQ TAB.ER PO SCH (12:33)
--- NOTE | 2023-11-08 13:12 | P.PN ---
Subjective Progress Note Date: 11/08/23 patient is 73-year-old lady with past medical history significant for CHF, hypertension, hypothyroidism, Crohn's disease, recent diagnosis of A-fib who presented to [facility] as a transfer for suspicion of sepsis. Patient was only recently discharged after presenting to the hospital for a fall and was diagnosed with A-fib and was discharged home. Patient has been doing well till yesterday evening when she started noticing fevers. There was no complaint of chills. there was no complaint of chest pain or shortness of breath. There was no complaint of palpitations. No complaint of nausea vomiting abdominal pain, during last admission patient did had an episode of rectal bleed which has resolved since then. Patient has been having diarrhea which is at baseline up to 10-12 bowel movements per day.Initial lab work done in the ER showed WBC 30, hemoglobin 9.6, platelet count 457, sodium 128, potassium 3.4, BUN 15, creatinine 0.7 UA negative for any infection Influenza A not detected Influenza B not detected RSV not detected COVID-19 not detected EKG done in the ER showed heart rate of 92, no ST segment elevation or depression seen, no T-wave inversions seen. Chest x-ray done in the ER showed no acute pulmonary infiltrate Patient admitted to internal medicine service 11/04. Patient seen and examined. CT abdomen pelvis done showed finding consistent with pancolitis most pronounced involving the ascending colon and cecum. Stool for C. difficile positive. Diarrhea has improved. Denies abdominal pain 11/05. Patient seen and examined. Diarrhea is improving. Patient still complaining of lethargy and weakness. PT and OT recommend rehab 11/06. Patient seen and examined. Patient still has a leukocytosis which could be secondary to her being on steroids. Diarrhea is improving every day, currently she states she is having up to 3-4 bowel movements 11/07. Patient seen and examined.Blood work done this morning showed WBC 27 which is improved from yesterday level of 36, hemoglobin 9.3, platelet count 430, sodium 129, potassium 3, BUN 10, creatinine 0.58. Diarrhea has improved. Potassium replacement ordered REVIEW OF SYSTEMS: CONSTITUTIONAL: No fever, no malaise,. CARDIOVASCULAR: No chest pain, no palpitations, no syncope. PULMONARY: No shortness of breath, no cough, GASTROINTESTINAL: As mentioned above NEUROLOGICAL: No headaches, no weakness, PHYSICAL EXAMINATION: GENERAL: The patient is alert and oriented x3, not in any acute distress. Well developed, well nourished. HEENT: Pupils are round and equally reacting to light. EOMI. No scleral icterus. No conjunctival pallor. Normocephalic, atraumatic. No pharyngeal erythema. No thyromegaly. CARDIOVASCULAR: S1 and S2 present. No murmurs, rubs, or gallops. PULMONARY: Chest is clear to auscultation, no wheezing or crackles. ABDOMEN: Soft, nontender, nondistended, normoactive bowel sounds. No palpable organomegaly. MUSCULOSKELETAL: No joint swelling or deformity. EXTREMITIES: No cyanosis, clubbing, or pedal edema. NEUROLOGICAL: Gross neurological examination did not reveal any focal deficits. SKIN: No rashes. Assessment and plan Active colitis Leukocytosis COPD History of Crohn's disease Hyponatremia Hypokalemia Paroxysmal atrial fibrillation Hypertension Hypothyroidism Family history of CAD Monitor vital signs Monitor CBC Monitor CMP Continue telemetry monitoring Follow-up on blood culture follow-up urine cultures Stool for C. difficile positive Continue oral vancomycin Potassium replacement ordered Continue prednisone 30 mg daily ID following PT and OT recommend rehab Labs and medication were reviewed.. Continue same treatment. Continue with symptomatic treatment. Resume home medication. Monitor labs and vitals. DVT and GI prophylaxis. Further recommendations as per clinical course of the patient Dictation was produced using [employer] dictation software. please excuse any grammatical, word or spelling errors. Objective - Vital Signs Vital signs: Vital Signs Temp 97.5 F L 11/08/23 08:00 Pulse 67 11/08/23 08:00 Resp 16 11/08/23 08:00 BP 113/73 11/08/23 08:00 Pulse Ox 95 11/08/23 08:00 FiO2 Intake & Output 11/07/23 11/08/23 11/08/23 18:59 06:59 18:59 Intake Total 744 368 Balance 744 368 Weight 77 kg Intake: IV 10 Invasive Line 3 10 Intake, IV Titration 390 Amount Sodium Chloride 0.9% 1, 390 000 ml @ 130 mls/hr IV . Q7H42M [facility] Rx#:[id number] Oral 354 358 Other: Voiding Method Toilet Toilet # Voids 1 - Labs CBC & Chem 7: 11/08/23 09:08 11/08/23 09:08 Labs: Abnormal Lab Results - Last 24 Hours (Table) 11/07/23 11/07/23 Range/Units 09:27 09:27 WBC 36.0 H (3.8-10.6) k/uL RBC 3.72 L (3.80-5.40) m/uL Hgb 10.4 L (11.4-16.0) gm/dL MCHC 29.8 L (31.0-37.0) g/dL Plt Count 457 H (150-450) k/uL Neutrophils # (Manual) 32.70 H (1.3-7.7) k/uL Lymphocytes # (Manual) 0.72 L (1.0-4.8) k/uL Monocytes # (Manual) 1.44 H (0-1.0) k/uL Metamyelocytes # (Man) 0.72 H (0) k/uL Myelocytes # (Manual) 0.36 H (0) k/uL Sodium 129 L (137-145) mmol/L Glucose 191 H (74-99) mg/dL Calcium 7.7 L (8.4-10.2) mg/dL Total Protein 4.5 L (6.3-8.2) g/dL Albumin 2.1 L (3.5-5.0) g/dL Microbiology - Last 24 Hours (Table) 11/04/23 18:52 Stool Culture - Final Stool 11/04/23 04:30 Blood Culture - Preliminary Blood
--- NOTE | 2023-11-08 15:39 | P.PN ---
Subjective Progress Note Date: 11/08/23 Principal diagnosis: Reason for follow-up is C. difficile colitis Patient is a 73-year-old female with a past medical history significant for Crohn's disease, hypertension hyperlipidemia, apparently was recently admitted at this facility and has been diagnosed and treated for new onset atrial fibrillation now present to the hospital with worsening diarrhea elevated white count, stool for significantly positive. On today's visit that is 11/08/2023, Patient is afebrile patient is currently on room air and denies having any shortness of breath, the patient denies any chest pain or cough, the patient denies any nausea vomiting did not have any abdominal pain and mention that he has slowed down compared to admission. Patient white count is down to 27,000 creatinine 0.58 stool culture negative Objective - Vital Signs Vital signs: Vital Signs Temp 97.6 F 11/08/23 12:46 Pulse 63 11/08/23 12:46 Resp 18 11/08/23 12:46 BP 120/77 11/08/23 12:46 Pulse Ox 95 11/08/23 12:46 FiO2 Intake & Output 11/07/23 11/08/23 11/08/23 18:59 06:59 18:59 Intake Total 744 618 Output Total 1 Balance 744 617 Weight 77 kg Intake: IV 20 Invasive Line 3 20 Intake, IV Titration 390 Amount Sodium Chloride 0.9% 1, 390 000 ml @ 130 mls/hr IV . Q7H42M [facility] Rx#:[id number] Oral 354 598 Output: Stool 1 Other: Voiding Method Toilet Toilet Toilet # Voids 1 3 # Bowel Movements 4 - Exam GENERAL DESCRIPTION: An elderly female lying in bed in no distress RESPIRATORY SYSTEM: Unlabored breathing , decreased breath sounds at bases HEART: S1 S2 regular rate and rhythm , ABDOMEN: Soft , no tenderness EXTREMITIES: No edema feet - Labs CBC & Chem 7: 11/08/23 09:08 11/08/23 09:08 Labs: Abnormal Lab Results - Last 24 Hours (Table) 11/08/23 11/08/23 Range/Units 09:08 09:08 WBC 27.0 H (3.8-10.6) k/uL RBC 3.33 L (3.80-5.40) m/uL Hgb 9.3 L (11.4-16.0) gm/dL Hct 30.4 L (34.0-46.0) % MCHC 30.6 L (31.0-37.0) g/dL RDW 15.7 H (11.5-15.5) % Neutrophils # 25.3 H (1.3-7.7) k/uL Lymphocytes # 0.6 L (1.0-4.8) k/uL Basophils # 0.3 H (0-0.2) k/uL Sodium 129 L (137-145) mmol/L Potassium 3.0 L (3.5-5.1) mmol/L Glucose 105 H (74-99) mg/dL Calcium 7.6 L (8.4-10.2) mg/dL Alkaline Phosphatase 132 H (38-126) U/L Total Protein 4.3 L (6.3-8.2) g/dL Albumin 2.0 L (3.5-5.0) g/dL Microbiology - Last 24 Hours (Table) 11/04/23 18:52 Stool Culture - Final Stool 11/04/23 04:30 Blood Culture - Preliminary Blood Assessment and Plan (1) C. difficile colitis Current Visit: Yes Status: Acute Code(s): A04.72 - ENTEROCOLITIS D/T CLOSTRIDIUM DIFFICILE, NOT SPCF RECUR SNOMED Code(s): 477843953 (2) Leukocytosis Current Visit: Yes Status: Acute Code(s): D72.829 - ELEVATED WHITE BLOOD CELL COUNT, UNSPECIFIED SNOMED Code(s): 142323370 [facility] patient who did have a fever tachycardia elevated white count patient did have a history of Crohn's disease also having significant diarrhea and the patient was noted to be tender in the left lower quadrant area with a question of possible C. difficile versus exacerbation of her Crohn's colitis. 2 CT of abdominal pelvis with oral contrast is suggestive of pancolitis and the patient stool for C. difficile came back positive. 4patient did have some clinical improvement and the patient white count is trending down we will continue the vancomycin at 500 every 6 however the patient continued to improve plan is to finish therapy with oral vancomycin 250 mg every 6 hours for 2 weeks and close outpatient follow-up Dictation was produced using [employer] software. please excuse any grammatical, word or spelling errors. Time with Patient: Less than 30
[2023-11-09 10:59] VITALS: RESP 16; TEMP 98
--- NOTE | 2023-11-09 12:13 | P.DS ---
Providers Date of admission: 11/04/23 05:48 Expected date of discharge: 11/09/23 Attending physician: Windy Ross Consults: 11/04/23 05:48 Consult Physician Routine Consulting Provider: Jakci Mcknight Consult Reason/Comments: sepsis Do you want consulting provider notified?: Yes Primary care physician: Stated None Hospital Course: Discharge diagnoses; C. difficile colitis Leukocytosis COPD History of Crohn's disease Hyponatremia Hypokalemia Paroxysmal atrial fibrillation Hypertension Hypothyroidism Family history of CAD Hospital course; patient is 73-year-old lady with past medical history significant for CHF, hypertension, hypothyroidism, Crohn's disease, recent diagnosis of A-fib who presented to [facility] as a transfer for suspicion of sepsis. Patient was only recently discharged after presenting to the hospital for a fall and was diagnosed with A-fib and was discharged home. Patient has been doing well till yesterday evening when she started noticing fevers. There was no complaint of chills. there was no complaint of chest pain or shortness of breath. There was no complaint of palpitations. No complaint of nausea vomiting abdominal pain, during last admission patient did had an episode of rectal bleed which has resolved since then. Patient has been having diarrhea which is at baseline up to 10-12 bowel movements per day.Initial lab work done in the ER showed WBC 30, hemoglobin 9.6, platelet count 457, sodium 128, potassium 3.4, BUN 15, creatinine 0.7 UA negative for any infection Influenza A not detected Influenza B not detected RSV not detected COVID-19 not detected EKG done in the ER showed heart rate of 92, no ST segment elevation or depression seen, no T-wave inversions seen. Chest x-ray done in the ER showed no acute pulmonary infiltrate Patient admitted to internal medicine service 11/04. Patient seen and examined. CT abdomen pelvis done showed finding consistent with pancolitis most pronounced involving the ascending colon and cecum. Stool for C. difficile positive. Diarrhea has improved. Denies abdominal pain 11/05. Patient seen and examined. Diarrhea is improving. Patient still complaining of lethargy and weakness. PT and OT recommend rehab 11/06. Patient seen and examined. Patient still has a leukocytosis which could be secondary to her being on steroids. Diarrhea is improving every day, cu rrently she states she is having up to 3-4 bowel movements 11/07. Patient seen and examined.Blood work done this morning showed WBC 27 which is improved from yesterday level of 36, hemoglobin 9.3, platelet count 430, sodium 129, potassium 3, BUN 10, creatinine 0.58. Diarrhea has improved. Potassium replacement ordered 11/08. Patient seen examined. ID recommended starting patient on oral vancomycin for 2 more weeks. Being discharged to rehab PHYSICAL EXAMINATION: GENERAL: The patient is alert and oriented x3, not in any acute distress. Well developed, well nourished. HEENT: Pupils are round and equally reacting to light. EOMI. No scleral icterus. No conjunctival pallor. Normocephalic, atraumatic. No pharyngeal erythema. No thyromegaly. CARDIOVASCULAR: S1 and S2 present. No murmurs, rubs, or gallops. PULMONARY: Chest is clear to auscultation, no wheezing or crackles. ABDOMEN: Soft, nontender, nondistended, normoactive bowel sounds. No palpable organomegaly. MUSCULOSKELETAL: No joint swelling or deformity. EXTREMITIES: No cyanosis, clubbing, or pedal edema. NEUROLOGICAL: Gross neurological examination did not reveal any focal deficits. SKIN: No rashes. Dictation was produced using [employer] dictation software. please excuse any grammatical, word or spelling errors. Patient Condition at Discharge: Good Plan - Discharge Summary Discharge Rx Participant: No New Discharge Prescriptions: New Cholestyramine (with Sugar) [Questran Packet] 4 gm PO TID BETWEEN MEALS #21 packet Vancomycin HCl [Vancocin HCl] 500 mg PO QID 14 Days #72 cap Continue Red Yeast Rice 1,200 mg PO DAILY Garlic 1,000 mg PO DAILY Calcium Citrate/Vitamin D3 [Citracal + D Maximum Caplet] 1 tab PO DAILY Albuterol Sulfate [Ventolin HFA] 2 puff INHALATION RT-Q4H PRN PRN Reason: Shortness Of Breath Balsalazide Disodium 2,250 mg PO TID 30 Days #270 cap Zinc Gluconate [Zinc] 50 mg PO DAILY Cholecalciferol [Vitamin D3 (25 Mcg = 1000 Iu)] 25 mcg PO DAILY Ascorbic Acid [Vitamin C] 1,000 mg PO DAILY Multivitamins, Thera [Multivitamin (formulary)] 1 tab PO DAILY Levothyroxine Sodium 25 mcg PO DAILY Furosemide [Lasix] 20 mg PO DAILY Fluticasone Propionate 110 Mcg [Flovent 110 Mcg Inhaler] 1 puff INHALATION RT-BID EPINEPHrine (Auto Inject) [Epipen] 0.3 mg IM ONCE PRN PRN Reason: Anaphylaxis Ubidecarenone [Coenzyme Q10] 100 mg PO DAILY Albuterol Sulfate [Accuneb] 3 ml INHALATION RT-Q4H PRN PRN Reason: Shortness Of Breath Metoprolol Tartrate [Lopressor] 50 mg PO BID #180 tab Amiodarone [Cordarone] See Taper PO DIRECTED Changed predniSONE 30 mg PO DAILY #0 Discharge Medication List Albuterol Sulfate [Accuneb] 3 ml INHALATION RT-Q4H PRN 10/28/23 [History] Albuterol Sulfate [Ventolin HFA] 2 puff INHALATION RT-Q4H PRN 10/28/23 [History] Ascorbic Acid [Vitamin C] 1,000 mg PO DAILY 10/28/23 [History] Calcium Citrate/Vitamin D3 [Citracal + D Maximum Caplet] 1 tab PO DAILY 10/28/23 [History] Cholecalciferol [Vitamin D3 (25 Mcg = 1000 Iu)] 25 mcg PO DAILY 10/28/23 [History] EPINEPHrine (Auto Inject) [Epipen] 0.3 mg IM ONCE PRN 10/28/23 [History] Fluticasone Propionate 110 Mcg [Flovent 110 Mcg Inhaler] 1 puff INHALATION RT-B ID 10/28/23 [History] Furosemide [Lasix] 20 mg PO DAILY 10/28/23 [History] Garlic 1,000 mg PO DAILY 10/28/23 [History] Levothyroxine Sodium 25 mcg PO DAILY 10/28/23 [History] Multivitamins, Thera [Multivitamin (formulary)] 1 tab PO DAILY 10/28/23 [History] Red Yeast Rice 1,200 mg PO DAILY 10/28/23 [History] Ubidecarenone [Coenzyme Q10] 100 mg PO DAILY 10/28/23 [History] Zinc Gluconate [Zinc] 50 mg PO DAILY 10/28/23 [History] Balsalazide Disodium 2,250 mg PO TID 30 Days #270 cap 10/31/23 [Rx] Metoprolol Tartrate [Lopressor] 50 mg PO BID #180 tab 10/31/23 [Rx] Amiodarone [Cordarone] See Taper PO DIRECTED 11/04/23 [History] Cholestyramine (with Sugar) [Questran Packet] 4 gm PO TID BETWEEN MEALS #21 packet 11/09/23 [Rx] Vancomycin HCl [Vancocin HCl] 500 mg PO QID 14 Days #72 cap 11/09/23 [Rx] predniSONE 30 mg PO DAILY #0 11/09/23 [Rx] Follow up Appointment(s)/Referral(s): None,Stated [Primary Care Provider] - 1-2 days [facility] [NON-STAFF] - Jacki Mcknight MD [STAFF PHYSICIAN] - 1 Week Discharge Disposition: TRANSFER TO SNF/ECF
[2023-11-09 13:30] VITALS: BP 109/70; PULSE 69
--- NOTE | 2023-11-09 14:52 | P.PN ---
Subjective Progress Note Date: 11/09/23 Principal diagnosis: Reason for follow-up is C. difficile colitis Patient is a 73-year-old female with a past medical history significant for Crohn's disease, hypertension hyperlipidemia, apparently was recently admitted at this facility and has been diagnosed and treated for new onset atrial fibrillation now present to the hospital with worsening diarrhea elevated white count, stool for significantly positive. On today's visit that is 11/09/2023, patient has been afebrile, patient is breathing comfortably and is currently on room air, patient denies having any s ignificant cough no chest pain shortness of breath, patient denies nausea vomiting or abdominal pain and the patient diarrhea has slowed down denies any blood or mucus in the stool has been complaining of mostly swelling to the lower extremity. Patient did have a white count of 27.0 which is down from yesterday of 36,000, creatinine 0.58 blood and stool culture has been negative Objective - Vital Signs Vital signs: Vital Signs Temp 98.0 F 11/09/23 08:00 Pulse 77 11/09/23 08:00 Resp 16 11/09/23 08:00 BP 101/68 11/09/23 08:00 Pulse Ox 94 L 11/09/23 08:00 FiO2 Intake & Output 11/08/23 11/09/23 11/09/23 18:59 06:59 18:59 Intake Total 858 30 10 Output Total 1 Balance 857 30 10 Intake: IV 20 30 10 Invasive Line 3 20 30 10 Oral 838 Output: Stool 1 Other: Voiding Method Toilet Toilet Toilet # Voids 1 1 # Bowel Movements 1 1 - Exam GENERAL DESCRIPTION: An elderly female lying in bed in no distress RESPIRATORY SYSTEM: Unlabored breathing , decreased breath sounds at bases HEART: S1 S2 regular rate and rhythm , ABDOMEN: Soft , no tenderness EXTREMITIES: No edema feet - Labs CBC & Chem 7: 11/08/23 09:08 11/08/23 09:08 Labs: Microbiology - Last 24 Hours (Table) 11/04/23 18:52 Stool Culture - Final Stool Assessment and Plan (1) C. difficile colitis Status: Acute Code(s): A04.72 - ENTEROCOLITIS D/T CLOSTRIDIUM DIFFICILE, NOT SPCF RECUR SNOMED Code(s): 299873381 (2) Leukocytosis Status: Acute Code(s): D72.829 - ELEVATED WHITE BLOOD CELL COUNT, UNSPECIFIED SNOMED Code(s): 579116547 Plan: 1patient presented hospital with sepsis in this patient who did have a fever tachycardia elevated white count patient did have a history of Crohn's disease also having significant diarrhea and the patient was noted to be tender in the left lower quadrant area with a question of possible C. difficile versus exacerbation of her Crohn's colitis. 2 CT of abdominal pelvis with oral contrast is suggestive of pancolitis and the patient stool for C. difficile came back positive. 4patient did have improvement her diarrhea and the patient white count is trending down she will finish therapy with oral vancomycin 250 mg p.o. every 6 hours for 2 weeks in view of extensive colitis encouraged to increase probiotic and yogurt intake and close outpatient follow-up they have been educated about recurrence of C. difficile if diarrhea come back after improvement to let me know right away. Multiple questions answered Dictation was produced using [employer] dictation software. please excuse any grammatical, word or spelling errors. Time with Patient: Less than 30
--- NOTE | 2023-11-12 09:33 | CDI ---
Documentation Clarification Form Date: 11/12/2023 From: Jessica Yen Admit Date: 11/04/2023 05:48:00 AM Patient Name: Debra Alejandre Visit Number: [id number] Discharge Date: 11/09/2023 01:31:00 PM ATTENTION: The Clinical Documentation Specialists (CDI) and [facility] Coding Staff appreciate your assistance in clarifying documentation. Please respond to the clarification below the line at the bottom and electronically sign. The CDI & [facility] Coding staff will review the response and follow-up if needed. Please note: Queries are made part of the Legal Health Record. If you have any questions, please contact the author of this message via ITS. Dr. Bjorn Guillaume, Sepsis is documented in the H&P which may lack sufficient clinical evidence/support in the medical record. Additional clarification is requested. History/Risk Factors: Hypertensive heart disease with CHF, PAF, hypothyroidism, COPD/Asthma, Crohns, HLD Clinical Indicators: Started to notice fevers, she has been having diarrhea which is up to 10-12 bowel movements per day. T 97.3, P 101, R 18, BP 81/58, O2 Sat 90 on room air WBC 30.6, Neutrophils 28.40, Lactic acid 1.1 C. difficile Tox - Positive Treatment: IV fluids, IV Azithromycin, IV Ceftriaxone, switched to Vancomycin 500 mg po QID After work up and study, please clarify which diagnosis is most appropriate? [ ] Sepsis ruled out [ x ] Sepsis, POA, cause___c diff [ ] Sepsis is a valid diagnosis as evidence by the following: (Please add rationale): [ ] Non-Infectious SIRS due to (please specify) [ ] Non-infectious SIRS due to with organ dysfunction as evidenced by [list organ dysfunction] [ ] Other, please specify [ ] Unable to determine MTDD
== END 2023-11-09 13:31 | DRG 872 ==
LOC: EC 04:04 → 3SCARD 05:48
PROVIDERS: ADMIT Hospitalist; ATTEND Hospitalist
DX: A41.4 Sepsis due to anaerobes (principal); A04.72 Enterocolitis due to Clostridium difficile, not specified as recurrent; E87.1 Hypo-osmolality and hyponatremia; K50.90 Crohn's disease, unspecified, without complications; I11.0 Hypertensive heart disease with heart failure; I50.9 Heart failure, unspecified; I48.0 Paroxysmal atrial fibrillation; E03.9 Hypothyroidism, unspecified; J44.89 Other specified chronic obstructive pulmonary disease; E78.5 Hyperlipidemia, unspecified; R09.02 Hypoxemia; E87.6 Hypokalemia; Z79.899 Other long term (current) drug therapy; Z79.890 Hormone replacement therapy; Z87.891 Personal history of nicotine dependence
CPT/HCPCS: 36415; 71045; 74177; 80053; 81003; 83605; 83735; 83880; 84100; 84484; 85025; 85610; 85730; 86480; 87040; 87045; 87046; 87493; 87636; 93005; 94640; 94760; 96361; 96365; 96366; 96368; 99291